=== PATIENT | female | born 1980 | race Caucasian/White ===

== ENCOUNTER 2016-10-28 16:35 | Emergency (ER) | payer OTHER ==
--- NOTE | 2016-10-28 17:13 | ED ---
Female Urogenital HPI - General Chief complaint: Urogenital Stated complaint: Poss UTI/STD check Time Seen by Provider: 10/28/16 16:50 Source: patient, RN notes reviewed Mode of arrival: ambulatory Limitations: no limitations - History of Present Illness Initial comments: Patient is a 36-year-old female presents emergency room for evaluation of pain burning during urination. Patient states she's been having symptoms for the past 3 days. Patient states she recently began having sexual intercourse with a new partner. Patient denies any known STDs from her new partner. Patient states she does have a history of chlamydia when she is 21 years old. Patient does state that she recurrently gets bacterial vaginosis as well. Patient states she thinks she has a urinary tract infection because she does not properly clean herself after sexual intercourse. Patient states she has been taking [id number]-[id number] remedies with no relief of symptoms. Patient denies flank pain or abdominal pain, nausea or vomiting. Patient denies any abnormal vaginal discharge or vaginal discomfort. Patient denies pain during sexual intercourse. Patient denies any abnormal lesions. Patient states that she does want an STD check while she is here. Patient denies any other symptoms or complaints at this time. Last Menstrual Period: 09/28/16 - Related Data Home Medications Medication Instructions Recorded Confirmed ALPRAZolam [Xanax] 0.5 mg PO HS PRN 10/28/16 10/28/16 Methenamine/Sodium Salicylate 1 tab PO Q8H PRN 10/28/16 10/28/16 [Cystex Tablet] Previous Rx's Medication Instructions Recorded Nitrofurantoin Monohyd/M-Cryst 100 mg PO Q12HR 5 Days 10/28/16 [Macrobid] Phenazopyridine HCl [Pyridium] 200 mg PO TID PRN #5 tablet 10/28/16 Allergies Allergy/AdvReac Type Severity Reaction Status Date / Time latex Allergy Unknown Verified 10/28/16 16:57 morphine Allergy Rash/Hives Verified 10/28/16 16:57 promethazine HCl Allergy Nausea & Verified 10/28/16 16:57 [From Phenergan] Vomiting Review of Systems ROS Statement: Those systems with pertinent positive or pertinent negative responses have been documented in the HPI. ROS Other: All systems not noted in ROS Statement are negative. Past Medical History Additional Past Medical History / Comment(s): ovarian cysts anxiety History of Any Multi-Drug Resistant Organisms: None Reported Past Surgical History: Cholecystectomy Past Psychological History: Anxiety Smoking Status: Current every day smoker Past Alcohol Use History: None Reported Past Drug Use History: None Reported General Exam - General Exam Comments Initial Comments: Sitting in exam room in no acute distress. Limitations: no limitations General appearance: alert, in no apparent distress Head exam: Present: atraumatic, normocephalic, normal inspection Eye exam: Present: normal appearance ENT exam: Present: normal exam Neck exam: Present: normal inspection Respiratory exam: Present: normal lung sounds bilaterally. Absent: respiratory distress Cardiovascular Exam: Present: regular rate, normal rhythm, normal heart sounds GI/Abdominal exam: Present: soft, normal bowel sounds. Absent: distended, tenderness, guarding, rebound, rigid External exam: Present: normal external exam Speculum exam: Present: vaginal discharge By manual exam: Present: normal by manual exam Extremities exam: Present: normal inspection Back exam: Present: normal inspection Neurological exam: Present: alert, oriented X3, CN II-XII intact, normal gait Psychiatric exam: Present: normal affect, normal mood Skin exam: Present: warm, dry, intact, normal color. Absent: rash Course Vital Signs 10/28/16 10/28/16 16:44 18:20 Temperature 98.5 F 98.4 F Pulse Rate 67 60 Respiratory 20 18 Rate Blood Pressure 121/62 117/79 O2 Sat by Pulse 97 99 Oximetry Medical Decision Making - Medical Decision Making Patient is a 36-year-old female presents to the emergency room for evaluation of dysuria. Urinalysis suspicious for urinary tract infection. Pelvic exam cultures pending. Patient placed on antibiotics and Pyridium. Advised patient to follow-up with primary care provider or [employer]. Patient states she understands everything that was discussed with her. Return parameters discussed. Case discussed with Dr. Bender. - Lab Data Lab Results 10/28/16 10/28/16 Range/Units 17:08 17:08 Urine Color Yellow Urine Appearance Clear (Clear) Urine pH 5.5 (5.0-8.0) Ur Specific [place] 1.024 (1.001-1.035) Urine Protein Trace H (Negative) Urine Glucose (UA) Negative (Negative) Urine Ketones Negative (Negative) Urine Blood Negative (Negative) Urine Nitrate Negative (Negative) Urine Bilirubin Negative (Negative) Urine Urobilinogen <2.0 (<2.0) mg/dL Ur Leukocyte Esterase Moderate H (Negative) Urine RBC 2 (0-5) /hpf Urine WBC 34 H (0-5) /hpf Ur Squamous Epith Cells 6 H (0-4) /hpf Urine Bacteria Rare H (None) /hpf Urine Mucus Occasional H (None) /hpf Trichomonas Ag (Rapid) Negative (Negative) Disposition Clinical Impression: Urinary tract infection Disposition: HOME SELF-CARE Condition: Good Instructions: Urinary Tract Infection in Women (ED) Additional Instructions: Take medications as needed. Drink plenty of water. Please follow up with primary care provider in 1-2 days. If any new symptom arises, symptoms worsen or fever develops, return to ER as soon as possible. Prescriptions: Nitrofurantoin Monohyd/M-Cryst [Macrobid] 100 mg PO Q12HR 5 Days Phenazopyridine HCl [Pyridium] 200 mg PO TID PRN #5 tablet PRN Reason: Pain Referrals: None,Stated [Primary Care Provider] - 1-2 days Time of Disposition: 18:03
[2016-10-28 17:58] LABS: Appearance,Urine Clear (Clear); Bacteria,Urine Rare /hpf; Bilirubin,Urine Negative (Negative); Glucose,Urine (UA) Negative (Negative); Ketones,Urine Negative (Negative); Leukocyte Esterase,Urine Moderate (Negative); Mucus,Urine Occasional /hpf; Nitrite,Urine Negative (Negative); PH, Urine 5.5 (5.0-8.0); Particle Count 6267; Protein,Urine Trace (Negative); RBC,Urine 2 /hpf (0-5); Specific Gravity,Urine 1.024 (1.001-1.035); Squamous Epithelial Cell,Urine 6 /hpf (0-4); UA Billing (MACRO vs. MICRO) MICRO; Urobilinogen,Urine <2.0 mg/dL (<2.0); WBC,Urine 34 /hpf (0-5)
[2016-10-28] MEDS ORDERED: PHENAZOPYRIDINE 200 MG TAB PO STA (18:01)
[2016-10-28] MEDS ORDERED: NITROFURANTOIN MONOHYD/M-CRYST 100 MG CAP PO STA (18:02)
[2016-10-28 18:21] VITALS: BP 117/79; PULSE 60; RESP 18; TEMP 98.4
== END 2016-10-28 18:21 | disposition home or self-care (01) ==
LOC: EC 16:35
DX: N39.0 Urinary tract infection, site not specified (principal); F17.200 Nicotine dependence, unspecified, uncomplicated; Z91.040 Latex allergy status; Z88.5 Allergy status to narcotic agent; Z88.8 Allergy status to other drugs, medicaments and biological substances
CPT/HCPCS: 81001; 87070; 87077; 87086; 87186; 87205; 87491; 87591; 87808; 99283

== ENCOUNTER 2018-11-11 17:42 | Emergency (ER) | payer OTHER ==
[2018-11-11 18:42] VITALS: BP 121/70; PULSE 77; RESP 16; TEMP 98.9
[2018-11-11 19:03] LABS: Appearance,Urine Clear (Clear); Bacteria,Urine Occasional /hpf; Bilirubin,Urine Negative (Negative); Blood,Urine Negative (Negative); Color,Urine Dark Yellow; Glucose,Urine (UA) Negative (Negative); Ketones,Urine Negative (Negative); Leukocyte Esterase,Urine Trace (Negative); Mucus,Urine Rare /hpf; Nitrite,Urine Negative (Negative); Protein,Urine Trace (Negative); RBC,Urine 2 /hpf (0-5); Specific Gravity,Urine 1.021 (1.001-1.035); Squamous Epithelial Cell,Urine 5 /hpf (0-4)
--- NOTE | 2018-11-11 19:21 | ED ---
General Adult HPI - General Chief complaint: Urogenital Stated complaint: UTI Time Seen by Provider: 11/11/18 18:18 Source: patient, RN notes reviewed, old records reviewed Mode of arrival: ambulatory Limitations: no limitations - History of Present Illness Initial comments: 38-year-old female patient upper and past medical history presents ED with 3 days of dysuria, frequency, urgency. Patient feels as if she has a urinary tract infection. Patient denies other complaints today. Denies abdominal pain , fever chills, nausea vomiting diarrhea. Systemic: Pt denies fatigue, myalgia, fever/chills, rash. Pt denies weakness, night sweats, weight loss. Neuro: Pt denies headache, visual disturbances, syncope or pre-syncope. HEENT: Pt denies ocular discharge or irritation, otalgia, rhinorrhea, pharyngitis or notable lymphadenopathy. Cardiopulmonary: Pt denies chest pain, SOB, heart palpitations, dyspnea on exertion. Abdominal/GI: Pt denies abdominal pain, n/v/d. : Denies new onset urinary or bowel incontinence. MSK: Pt denies myalgia, loss of strength or function in extremities. Neuro: Pt denies new onset weakness, paresthesias. - Related Data Previous Rx's Medication Instructions Recorded Cephalexin [Keflex] 500 mg PO Q12HR 10 Days cap 11/11/18 Allergies Allergy/AdvReac Type Severity Reaction Status Date / Time latex Allergy Unknown Verified 11/11/18 19:46 morphine Allergy Rash/Hives Verified 11/11/18 19:46 promethazine HCl Allergy Nausea & Verified 11/11/18 19:46 [From Phenergan] Vomiting Review of Systems ROS Statement: Those systems with pertinent positive or pertinent negative responses have been documented in the HPI. ROS Other: All systems not noted in ROS Statement are negative. Past Medical History Additional Past Medical History / Comment(s): ovarian cysts anxiety History of Any Multi-Drug Resistant Organisms: None Reported Past Surgical History: Cholecystectomy Past Psychological History: Anxiety Smoking Status: Current every day smoker Past Alcohol Use History: None Reported Past Drug Use History: None Reported General Exam - General Exam Comments Initial Comments: Constitutional: NAD, AOX3, Pt has pleasant affect. HEENT: NC/AT, trachea midline, neck supple, no lymphadenopathy. Posterior pharynx non erythematous, without exudates. External ears appear normal, without discharge. Mucous membranes moist. Eyes PERRLA, EOM intact. There is no scleral icterus. No pallor noted. Cardiopulmonary: RRR, no murmurs, rubs or gallops, no JVD noted. Lungs CTAB in anterior and posterior villanueva. No peripheral edema. Abdominal exam: Abdomen soft and non-distended. Abdomen non-tender to palpation in all 4 quadrants. Bowel sounds active in LLQ. No hepatosplenomegaly. No ecchymosis. CVA tenderness negative. Neuro: CN II-XII grossly intact. No nuchal rigidity. MSK: No posterior calf tenderness bilaterally, homans sign negative bilaterally. Posterior tibialis and radial pulse +2 bilaterally. Sensation intact in upper and lower extremities. Full active ROM in upper and lower extremities, 5/5 stregnth. Limitations: no limitations Course Vital Signs 11/11/18 18:40 Temperature 98.9 F Pulse Rate 77 Respiratory 16 Rate Blood Pressure 121/70 O2 Sat by Pulse 99 Oximetry Medical Decision Making - Medical Decision Making 38-year-old female patient upper and past medical history presents ED with 3 days of dysuria, frequency, urgency. Patient feels as if she has a urinary tract infection. Patient denies other complaints today. Denies abdominal pain , fever chills, nausea vomiting diarrhea. Pt VSS, afebrile. Physical exam did not display acute pathology. UA displayed urinary tract infection, negative hCG. Patient treated for urinary tract infection with Keflex. Patient to follow with primary care provider 1-2 days. Patient to return to ED if new signs symptoms felt or condition worsens in anyway. Case discussed with Dr. Benjamin. - Lab Data Lab Results 11/11/18 11/11/18 Range/Units 18:52 18:52 Urine Color Dark Yellow Urine Appearance Clear (Clear) Urine pH 7.0 (5.0-8.0) Ur Specific [place] 1.021 (1.001-1.035) Urine Protein Trace H (Negative) Urine Glucose (UA) Negative (Negative) Urine Ketones Negative (Negative) Urine Blood Negative (Negative) Urine Nitrite Negative (Negative) Urine Bilirubin Negative (Negative) Urine Urobilinogen 4.0 (<2.0) mg/dL Ur Leukocyte Esterase Trace H (Negative) Urine RBC 2 (0-5) /hpf Urine WBC 14 H (0-5) /hpf Ur Squamous Epith Cells 5 H (0-4) /hpf Urine Bacteria Occasional H (None) /hpf Urine Mucus Rare H (None) /hpf Urine HCG, Qual Not Detected (Not Detectd) Disposition Clinical Impression: UTI (urinary tract infection) Disposition: HOME SELF-CARE Condition: Stable Instructions (If sedation given, give patient instructions): Urinary Tract Infection in Women (ED) Additional Instructions: Patient to adhere to previously discussed treatment plan and will take medication(s) as directed. Patient to follow up with PCP in 1-2 days. Patient to return to ED if symptoms do not improve. Prescriptions: Cephalexin [Keflex] 500 mg PO Q12HR 10 Days cap Is patient prescribed a controlled substance at d/c from ED?: No Referrals: None,Stated [Primary Care Provider] - 1-2 days [facility] Collette pollard [NON-STAFF] - 1-2 days
== END 2018-11-11 19:53 | disposition home or self-care (01) ==
LOC: EC 17:42
DX: N39.0 Urinary tract infection, site not specified (principal); F17.200 Nicotine dependence, unspecified, uncomplicated; Z91.040 Latex allergy status; Z88.5 Allergy status to narcotic agent; Z88.8 Allergy status to other drugs, medicaments and biological substances; Z90.49 Acquired absence of other specified parts of digestive tract
CPT/HCPCS: 81001; 81025; 87086; 99284

== ENCOUNTER 2019-10-19 00:26 | Emergency (ER) | payer OTHER ==
[2019-10-19] MEDS ORDERED: guaiFENesin-DM 600/30MG 1 EACH TAB.ER.12H PO STA (00:52)
[2019-10-19] MEDS ORDERED: SODIUM CHLORIDE 0.9% 1,000 ML IV ONE (00:52)
[2019-10-19] MEDS ORDERED: KETOROLAC 30 MG/ML 1 ML VIAL IVP STA (00:52)
[2019-10-19] MEDS ORDERED: DEXAMETHASONE SOD PHOSPHATE 10 MG/ML 1 ML VIAL IV STA (00:52)
[2019-10-19] MEDS ORDERED: ONDANSETRON 4 MG/2 ML VIAL IVP STA (00:53)
[2019-10-19 01:27] LABS: Appearance,Urine Cloudy (Clear); Bacteria,Urine Rare /hpf; Bilirubin,Urine Negative (Negative); Blood,Urine Negative (Negative); Color,Urine Yellow; Glucose,Urine (UA) Negative (Negative); Hyaline Casts,Urine 2 /lpf (0-2); Ketones,Urine 4+ (Negative); Leukocyte Esterase,Urine Negative (Negative); Mucus,Urine Many /hpf; Nitrite,Urine Negative (Negative); PH, Urine 5.5 (5.0-8.0); Protein,Urine 1+ (Negative); RBC,Urine 3 /hpf (0-5); Specific Gravity,Urine 1.034 (1.001-1.035); Squamous Epithelial Cell,Urine 22 /hpf (0-4); WBC,Urine 4 /hpf (0-5)
[2019-10-19 01:33] LABS: HCT 40.2 % (34.0-46.0); HGB 13.1 gm/dL (11.4-16.0); MCH 29.1 pg (25.0-35.0); MCHC 32.5 g/dL (31.0-37.0); MCV 89.4 fL (80.0-100.0); Mean Platelet Volume 7.5; Platelet Count 235 k/uL (150-450); RBC 4.49 m/uL (3.80-5.40); RDW 12.2 % (11.5-15.5); WBC 6.2 k/uL (3.8-10.6)
[2019-10-19 01:38] LABS: ALT 16 U/L (4-34); AST 32 U/L (14-36); African American GFR (CKD) >90 (>60 ml/min/1.73 sqM); Albumin 4.7 g/dL (3.5-5.0); Alkaline Phosphatase 56 U/L (38-126); Anion Gap 9 mmol/L; Blood Urea Nitrogen 15 mg/dL (7-17); Calcium 9.1 mg/dL (8.4-10.2); Carbon Dioxide 24 mmol/L (22-30); Chloride 103 mmol/L (98-107); Glucose 109 mg/dL (74-99); Non-African American GFR(CKD) >90 (>60 ml/min/1.73 sqM); Potassium 3.6 mmol/L (3.5-5.1); Sodium 136 mmol/L (137-145); Total Bilirubin 0.4 mg/dL (0.2-1.3); Total Protein 7.7 g/dL (6.3-8.2)
--- NOTE | 2019-10-19 01:39 | XR ---
EXAMINATION TYPE: XR chest 2V DATE OF EXAM: 10/19/2019 COMPARISON: NONE HISTORY: Cough TECHNIQUE: FINDINGS: Heart and mediastinum are normal. Lungs are clear. Diaphragm is normal. Bony thorax appears normal. IMPRESSION: Normal chest. Normal heart.
[2019-10-19 01:55] LABS: Eosinophils # (M) 0.06 k/uL (0-0.7); Lymphocytes # (M) 1.74 k/uL (1.0-4.8); Monocytes # (M) 0.81 k/uL (0-1.0); Neutrophils % (M) 58 %; Nucleated Red Blood Cells 0 /100 WBC (0-0); Total Cells Counted 100
[2019-10-19] MEDS ORDERED: OSELTAMIVIR 75 MG CAP PO STA (02:05)
[2019-10-19] MEDS ORDERED: ONDANSETRON 4 MG ODT STARTER PACK 2 TAB BTL PO STA (02:05)
--- NOTE | 2019-10-19 02:05 | ED ---
General Adult HPI - General Chief complaint: Headache Stated complaint: Headache, Vomiting Time Seen by Provider: 10/19/19 00:36 Source: patient, family Mode of arrival: ambulatory Limitations: no limitations - History of Present Illness Initial comments: 39-year-old female patient presents to the emergency department today for evaluation of bodyaches, congestion, cough, and abdominal cramping. Patient states symptoms have been present for the last 4 days. Patient states she saw her primary care physician yesterday, she states they did not do anything for her. Patient denies taking any medication for her symptoms. Patient states that she has severe coughing episodes that cause her to become short of breath. She denies any sputum production. States she is having dry heaves. She denies any chest pain with this. Denies any rash or itching. Patient states that she has been having chills but she is unsure fever. Patient is reporting some abdominal cramping. States she did have diarrhea. She denies any abnormal vaginal bleeding or discharge. Denies hematuria, dysuria, urinary frequency, urinary urgency. Denies chance of . Patient denies any recent rash, diarrhea, constipation, back pain, numbness, tingling, dizziness, weakness, visual changes, or any other complaints. - Related Data Previous Rx's Medication Instructions Recorded Cephalexin [Keflex] 500 mg PO Q12HR 10 Days cap 11/11/18 Ibuprofen [Motrin] 600 mg PO Q8HR PRN #30 tab 10/19/19 Oseltamivir [Tamiflu] 75 mg PO Q12HR #10 cap 10/19/19 guaiFENesin-DM 600/30MG [Mucinex 2 each PO Q12HR PRN #20 tab.er.12h 10/19/19 Dm] Allergies Allergy/AdvReac Type Severity Reaction Status Date / Time latex Allergy Unknown Verified 10/19/19 00:34 morphine Allergy Rash/Hives Verified 10/19/19 00:34 promethazine HCl Allergy Nausea & Verified 10/19/19 00:34 [From Phenergan] Vomiting Review of Systems ROS Statement: Those systems with pertinent positive or pertinent negative responses have been documented in the HPI. ROS Other: All systems not noted in ROS Statement are negative. Past Medical History Additional Past Medical History / Comment(s): ovarian cysts anxiety History of Any Multi-Drug Resistant Organisms: None Reported Past Surgical History: Cholecystectomy Past Psychological History: Anxiety, Depression Smoking Status: Current every day smoker Past Alcohol Use History: None Reported Past Drug Use History: Marijuana General Exam Limitations: no limitations General appearance: alert, in no apparent distress, other (This is a well- developed, well-nourished adult female patient in no acute distress. Vital signs upon presentation are temperature 98.7F, pulse 98, respirations 22, blood pressure 133/88, pulse ox 97% on room air.) Eye exam: Present: normal appearance, PERRL, EOMI. Absent: scleral icterus, conjunctival injection, periorbital swelling ENT exam: Present: mucous membranes moist, TM's normal bilaterally. Absent: normal oropharynx (Pharyngeal erythema) Respiratory exam: Present: normal lung sounds bilaterally. Absent: respiratory distress, wheezes, rales, rhonchi, stridor Cardiovascular Exam: Present: regular rate, normal rhythm, normal heart sounds. Absent: systolic murmur, diastolic murmur, rubs, gallop, clicks GI/Abdominal exam: Present: soft, tenderness (Generalized, mild tenderness), normal bowel sounds. Absent: distended, guarding, rebound, rigid Neurological exam: Present: alert, oriented X3, CN II-XII intact Psychiatric exam: Present: normal affect, normal mood Skin exam: Present: warm, dry, intact, normal color. Absent: rash Course Vital Signs 10/19/19 10/19/19 00:30 02:37 Temperature 98.7 F 98.3 F Pulse Rate 98 73 Respiratory 22 20 Rate Blood Pressure 133/88 116/68 O2 Sat by Pulse 97 98 Oximetry Medical Decision Making - Medical Decision Making 39-year-old female patient presents to the emergency department today for evaluation of upper respiratory symptoms, body aches, abdominal pain. Physical examination revealed mild generalized abdominal tenderness. Chest x-ray shows no acute cardio pulmonary process. Urinalysis is negative for infection or preg tony. Patient was positive for influenza B. I did discuss findings and results with the patient. We will treat patient symptomatically. She is out of the treatment window for Tamiflu. She'll be discharged home to follow-up with her primary care physician for recheck in 1-2 days. Return parameters were discussed in detail. She verbalizes understanding and agrees with this plan. - Lab Data Result diagrams: 10/19/19 01:17 10/19/19 01:17 Lab Results 10/19/19 10/19/19 10/19/19 Range/Units 01:06 01:06 01:17 WBC 6.2 (3.8-10.6) k/uL RBC 4.49 (3.80-5.40) m/uL Hgb 13.1 (11.4-16.0) gm/dL Hct 40.2 (34.0-46.0) % MCV 89.4 (80.0-100.0) fL MCH 29.1 (25.0-35.0) pg MCHC 32.5 (31.0-37.0) g/dL RDW 12.2 (11.5-15.5) % Plt Count 235 (150-450) k/uL Neutrophils % (Manual) 58 % Lymphocytes % (Manual) 28 % Monocytes % (Manual) 13 % Eosinophils % (Manual) 1 % Neutrophils # (Manual) 3.60 (1.3-7.7) k/uL Lymphocytes # (Manual) 1.74 (1.0-4.8) k/uL Monocytes # (Manual) 0.81 (0-1.0) k/uL Eosinophils # (Manual) 0.06 (0-0.7) k/uL Nucleated RBCs 0 (0-0) /100 WBC RBC Morphology Normal Sodium (137-145) mmol/L Potassium (3.5-5.1) mmol/L Chloride (98-107) mmol/L Carbon Dioxide (22-30) mmol/L Anion Gap mmol/L BUN (7-17) mg/dL Creatinine (0.52-1.04) mg/dL Est GFR (CKD-EPI)AfAm (>60 ml/min/1.73 sqM) Est GFR (CKD-EPI)NonAf (>60 ml/min/1.73 sqM) Glucose (74-99) mg/dL Calcium (8.4-10.2) mg/dL Total Bilirubin (0.2-1.3) mg/dL AST (14-36) U/L ALT (4-34) U/L Alkaline Phosphatase (38-126) U/L Total Protein (6.3-8.2) g/dL Albumin (3.5-5.0) g/dL Lipase (23-300) U/L Urine Color Yellow Urine Appearance Cloudy H (Clear) Urine pH 5.5 (5.0-8.0) Ur Specific [place] 1.034 (1.001-1.035) Urine Protein 1+ H (Negative) Urine Glucose (UA) Negative (Negative) Urine Ketones 4+ H (Negative) Urine Blood Negative (Negative) Urine Nitrite Negative (Negative) Urine Bilirubin Negative (Negative) Urine Urobilinogen 3.0 (<2.0) mg/dL Ur Leukocyte Esterase Negative (Negative) Urine RBC 3 (0-5) /hpf Urine WBC 4 (0-5) /hpf Ur Squamous Epith Cells 22 H (0-4) /hpf Urine Bacteria Rare H (None) /hpf Hyaline Casts 2 (0-2) /lpf Urine Mucus Many H (None) /hpf Urine HCG, Qual Not Detected (Not Detectd) Influenza Type A RNA (Not Detectd) Influenza Type B (PCR) (Not Detectd) 10/19/19 10/19/19 Range/Units 01:17 01:17 WBC (3.8-10.6) k/uL RBC (3.80-5.40) m/uL Hgb (11.4-16.0) gm/dL Hct (34.0-46.0) % MCV (80.0-100.0) fL MCH (25.0-35.0) pg MCHC (31.0-37.0) g/dL RDW (11.5-15.5) % Plt Count (150-450) k/uL Neutrophils % (Manual) % Lymphocytes % (Manual) % Monocytes % (Manual) % Eosinophils % (Manual) % Neutrophils # (Manual) (1.3-7.7) k/uL Lymphocytes # (Manual) (1.0-4.8) k/uL Monocytes # (Manual) (0-1.0) k/uL Eosinophils # (Manual) (0-0.7) k/uL Nucleated RBCs (0-0) /100 WBC RBC Morphology Sodium 136 L (137-145) mmol/L Potassium 3.6 (3.5-5.1) mmol/L Chloride 103 (98-107) mmol/L Carbon Dioxide 24 (22-30) mmol/L Anion Gap 9 mmol/L BUN 15 (7-17) mg/dL Creatinine 0.60 (0.52-1.04) mg/dL Est GFR (CKD-EPI)AfAm >90 (>60 ml/min/1.73 sqM) Est GFR (CKD-EPI)NonAf >90 (>60 ml/min/1.73 sqM) Glucose 109 H (74-99) mg/dL Calcium 9.1 (8.4-10.2) mg/dL Total Bilirubin 0.4 (0.2-1.3) mg/dL AST 32 (14-36) U/L ALT 16 (4-34) U/L Alkaline Phosphatase 56 (38-126) U/L Total Protein 7.7 (6.3-8.2) g/dL Albumin 4.7 (3.5-5.0) g/dL Lipase 50 (23-300) U/L Urine Color Urine Appearance (Clear) Urine pH (5.0-8.0) Ur Specific [place] (1.001-1.035) Urine Protein (Negative) Urine Glucose (UA) (Negative) Urine Ketones (Negative) Urine Blood (Negative) Urine Nitrite (Negative) Urine Bilirubin (Negative) Urine Urobilinogen (<2.0) mg/dL Ur Leukocyte Esterase (Negative) Urine RBC (0-5) /hpf Urine WBC (0-5) /hpf Ur Squamous Epith Cells (0-4) /hpf Urine Bacteria (None) /hpf Hyaline Casts (0-2) /lpf Urine Mucus (None) /hpf Urine HCG, Qual (Not Detectd) Influenza Type A RNA Not Detected (Not Detectd) Influenza Type B (PCR) Detected H (Not Detectd) - Radiology Data Radiology results: report reviewed, image reviewed Two-view x-ray of the chest is obtained. Report was reviewed in its entirety. Impression by Dr. Glaser shows normal chest. Normal heart Disposition Clinical Impression: Influenza B Disposition: HOME SELF-CARE Condition: Good Instructions (If sedation given, give patient instructions): Influenza (ED) Additional Instructions: Increase fluids. Take medications as instructed. Follow-up through primary care physician for recheck in 1-2 days. Return to the emergency department immediately for any new, worsening, or concerning symptoms. Meds given in the ED: Mucinex DM Decadron (steroid) Toradol (Anti-inflammatory pain medication) Normal Saline (IV fluids) Tamiflu (Treatment for influenza) Zofran (Treatment for nausea) Dilaudid (For Pain) Prescriptions: Ibuprofen [Motrin] 600 mg PO Q8HR PRN #30 tab PRN Reason: Pain guaiFENesin-DM 600/30MG [Mucinex Dm] 2 each PO Q12HR PRN #20 tab.er.12h PRN Reason: Cough Oseltamivir [Tamiflu] 75 mg PO Q12HR #10 cap Is patient prescribed a controlled substance at d/c from ED?: No Referrals: None,Stated [Primary Care Provider] - 1-2 days Time of Disposition: 02:05
[2019-10-19] MEDS ORDERED: HYDROmorphone 0.5 MG/0.5 ML SYRINGE IVP STA (02:12)
[2019-10-19] MEDS ORDERED: IBUPROFEN 600 MG STARTER PACK 4 TAB BTL PO STA (02:12)
[2019-10-19 02:38] VITALS: BP 116/68; PULSE 73; RESP 20; TEMP 98.3
== END 2019-10-19 02:38 | disposition home or self-care (01) ==
LOC: EC 00:26
DX: J10.1 Influenza due to other identified influenza virus with other respiratory manifestations (principal); R10.9 Unspecified abdominal pain; R19.7 Diarrhea, unspecified; F17.200 Nicotine dependence, unspecified, uncomplicated; Z88.5 Allergy status to narcotic agent; Z88.8 Allergy status to other drugs, medicaments and biological substances; Z91.040 Latex allergy status; Z90.49 Acquired absence of other specified parts of digestive tract
CPT/HCPCS: 36415; 80053; 83690; 85025; 81001; 81025; 87502; 71046; 99284; 96374; 96375 ×3; 96361; J1100; J2405; J1885; S0119; J1170

== ENCOUNTER 2019-10-30 23:03 | Emergency (ER) | payer OTHER ==
[2019-10-30 23:23] VITALS: BP 153/71; PULSE 76; RESP 20; TEMP 98.2
[2019-10-30] MEDS ORDERED: ETODOLAC 400 MG TAB PO STA (23:42)
[2019-10-30] MEDS ORDERED: AMOXICILLIN 500 MG CAP PO STA (23:43)
--- NOTE | 2019-10-30 23:47 | ED ---
ENT HPI - General Chief complaint: ENT Stated complaint: Lt Ear Pain Time Seen by Provider: 10/30/19 23:28 Source: patient Mode of arrival: ambulatory Limitations: no limitations - History of Present Illness Initial comments: Patient is a 39-year-old female presenting with left-sided ear pain that increased today. Patient states she was recently diagnosed with influenza 2 weeks ago and has been recovering well from that. Patient states last night and into today she started developing 10/10 left ear pain extending into her jaw. Patient denies any fevers, chills, nausea, vomiting. She denies any chest pain, short of breath, cough. She has no other complaints at this time. Upon arrival to the ER her vital signs are stable. - Related Data Previous Rx's Medication Instructions Recorded Cephalexin [Keflex] 500 mg PO Q12HR 10 Days cap 11/11/18 Ibuprofen [Motrin] 600 mg PO Q8HR PRN #30 tab 10/19/19 Ondansetron Odt [Zofran Odt] 4 mg PO Q8HR PRN #10 tab 10/19/19 Oseltamivir [Tamiflu] 75 mg PO Q12HR #10 cap 10/19/19 guaiFENesin-DM 600/30MG [Mucinex 2 each PO Q12HR PRN #20 tab.er.12h 10/19/19 Dm] Amoxicillin 500 mg PO BID 7 Days #14 capsule 10/30/19 Ibuprofen [Motrin] 600 mg PO Q8HR PRN #30 tab 10/30/19 Allergies Allergy/AdvReac Type Severity Reaction Status Date / Time latex Allergy Unknown Verified 10/30/19 23:24 morphine Allergy Rash/Hives Verified 10/30/19 23:24 promethazine HCl Allergy Nausea & Verified 10/30/19 23:24 [From Phenergan] Vomiting Review of Systems ROS Statement: Those systems with pertinent positive or pertinent negative responses have been documented in the HPI. ROS Other: All systems not noted in ROS Statement are negative. Past Medical History Additional Past Medical History / Comment(s): ovarian cysts anxiety History of Any Multi-Drug Resistant Organisms: None Reported Past Surgical History: Adenoidectomy, Cholecystectomy, Tonsillectomy Additional Past Surgical History / Comment(s): lt fallopian tube removal Past Psychological History: Anxiety, Depression Smoking Status: Current every day smoker Past Alcohol Use History: None Reported Past Drug Use History: Marijuana General Exam - General Exam Comments Initial Comments: GENERAL: Well-appearing, well-nourished and in no acute distress. HEAD: Atraumatic, normocephalic. EYES: Pupils equal round and reactive to light, extraocular movements intact, sclera anicteric, conjunctiva are normal. ENT: Right TM is normal, left TM is very erythematous and bulging. Bilateral EACs are normal. Nares patent, oropharynx clear without exudates. Moist mucous membranes. NECK: Normal range of motion, supple without lymphadenopathy or JVD. . LUNGS: Breath sounds clear to auscultation bilaterally and equal. No wheezes rales or rhonchi. HEART: Regular rate and rhythm without murmurs, rubs or gallops. ABDOMEN: Soft, nontender, normoactive bowel sounds. No guarding, no rebound. No masses appreciated. EXTREMITIES: Normal range of motion, no pitting or edema. No clubbing or cyanosis. NEUROLOGICAL: Normal speech, normal gait. PSYCH: Normal mood, normal affect. SKIN: Warm, Dry, normal turgor, no rashes or lesions noted. Limitations: no limitations Course Vital Signs 10/30/19 23:20 Temperature 98.2 F Pulse Rate 76 Respiratory 20 Rate Blood Pressure 153/71 O2 Sat by Pulse 99 Oximetry Medical Decision Making - Medical Decision Making Patient is a 39-year-old female presenting with left ear pain 1 day. She was recently diagnosed with influenza 2 weeks ago, recovering well from that. On exam patient has otitis media of the left ear. No other acute findings. Patient will be started on amoxicillin and given first dose in the ER as well as an anti-inflammatory. Patient is stable for discharge. She is in agreement with this plan of care. Return parameters were discussed with the patient she verbalized understanding. Disposition Clinical Impression: Left otitis media Disposition: HOME SELF-CARE Condition: Stable Instructions (If sedation given, give patient instructions): Ear Infection (ED) Additional Instructions: Please return to the Emergency Department if symptoms worsen or any other concerns. Take antibiotic as prescribed. May take Motrin or Aleve for pain. Prescriptions: Amoxicillin 500 mg PO BID 7 Days #14 capsule Ibuprofen [Motrin] 600 mg PO Q8HR PRN #30 tab PRN Reason: Pain Is patient prescribed a controlled substance at d/c from ED?: No Referrals: None,Stated [Primary Care Provider] - 1-2 days
[2019-10-30] MEDS ORDERED: ONDANSETRON ODT 4 MG TAB PO STA (23:51)
== END 2019-10-31 00:24 | disposition home or self-care (01) ==
LOC: EC 23:03
DX: H66.92 Otitis media, unspecified, left ear (principal); F17.200 Nicotine dependence, unspecified, uncomplicated; Z91.040 Latex allergy status; Z88.5 Allergy status to narcotic agent; Z88.8 Allergy status to other drugs, medicaments and biological substances; Z87.09 Personal history of other diseases of the respiratory system
CPT/HCPCS: 99282

== ENCOUNTER 2019-11-03 18:09 | Emergency (ER) | payer OTHER ==
[2019-11-03 18:15] VITALS: BP 126/92; RESP 18; TEMP 97.8
[2019-11-03] MEDS ORDERED: ONDANSETRON ODT 4 MG TAB PO STA (18:43)
[2019-11-03] MEDS ORDERED: ONDANSETRON 4 MG ODT STARTER PACK 2 TAB BTL PO STA (18:45)
[2019-11-03 18:48] VITALS: PULSE 107
--- NOTE | 2019-11-03 18:48 | ED ---
General Adult HPI - General Chief complaint: ENT Stated complaint: Earache,Hearing loss Time Seen by Provider: 11/03/19 18:22 Source: patient, RN notes reviewed Mode of arrival: ambulatory Limitations: no limitations - History of Present Illness Initial comments: 39-year-old female presents to the emergency department for a chief complaint of decreased hearing from the left ear. Patient states that she was diagnosed with an ear infection 5 days ago. States she has been taking amoxicillin. However now her hearing is decreased. She denies fevers or chills. Denies any drainage from the left ear.Patient has no other complaints at this time including shortness of breath, chest pain, abdominal pain, nausea or vomiting, headache, or visual changes. - Related Data Previous Rx's Medication Instructions Recorded Cephalexin [Keflex] 500 mg PO Q12HR 10 Days cap 11/11/18 Ibuprofen [Motrin] 600 mg PO Q8HR PRN #30 tab 10/19/19 Ondansetron Odt [Zofran Odt] 4 mg PO Q8HR PRN #10 tab 10/19/19 Oseltamivir [Tamiflu] 75 mg PO Q12HR #10 cap 10/19/19 guaiFENesin-DM 600/30MG [Mucinex 2 each PO Q12HR PRN #20 tab.er.12h 10/19/19 Dm] Amoxicillin 500 mg PO BID 7 Days #14 capsule 10/30/19 Ibuprofen [Motrin] 600 mg PO Q8HR PRN #30 tab 10/30/19 Amoxicillin/Potassium Clav 1 tab PO Q12HR #20 tab 11/03/19 [Augmentin 875-125 Tablet] Ondansetron [Zofran ODT] 4 mg PO Q8HR PRN #15 tab 11/03/19 Allergies Allergy/AdvReac Type Severity Reaction Status Date / Time latex Allergy Unknown Verified 11/03/19 18:12 morphine Allergy Rash/Hives Verified 11/03/19 18:12 promethazine HCl Allergy Nausea & Verified 11/03/19 18:12 [From Phenergan] Vomiting Review of Systems ROS Statement: Those systems with pertinent positive or pertinent negative responses have been documented in the HPI. ROS Other: All systems not noted in ROS Statement are negative. Past Medical History Additional Past Medical History / Comment(s): ovarian cysts anxiety History of Any Multi-Drug Resistant Organisms: None Reported Past Surgical History: Adenoidectomy, Cholecystectomy, Tonsillectomy Additional Past Surgical History / Comment(s): lt fallopian tube removal Past Psychological History: Anxiety, Depression Smoking Status: Current every day smoker Past Alcohol Use History: None Reported Past Drug Use History: Marijuana General Exam Limitations: no limitations General appearance: alert, in no apparent distress Head exam: Present: atraumatic, normocephalic, normal inspection Eye exam: Present: normal appearance, PERRL, EOMI. Absent: scleral icterus, conjunctival injection, periorbital swelling ENT exam: Present: normal exam, normal oropharynx, mucous membranes moist, normal external ear exam (No evidence for otitis externa. No edema of the ear canal.). Absent: TM's normal bilaterally (Left tympanic membrane is ruptured.) Neck exam: Present: normal inspection, full ROM. Absent: tenderness, meningismus, lymphadenopathy Respiratory exam: Present: normal lung sounds bilaterally. Absent: respiratory distress, wheezes, rales, rhonchi, stridor Cardiovascular Exam: Present: regular rate, normal rhythm, normal heart sounds. Absent: systolic murmur, diastolic murmur, rubs, gallop, clicks Course Vital Signs 11/03/19 11/03/19 18:13 18:48 Temperature 97.8 F Pulse Rate 128 H 107 H Respiratory 18 18 Rate Blood Pressure 126/92 O2 Sat by Pulse 96 Oximetry Medical Decision Making - Medical Decision Making Physical exam reveals a rupture of the left tympanic membrane. There is no drainage. No history days. No evidence of otitis externa. Patient will be switched from amoxicillin to Augmentin. She does have some nausea so was given Zofran. I discussed keeping water out of the ear discussed importance of following up with ENT for this. She was given the phone number. I discussed this case with Dr. Mckinley who is in agreement with treatment plan. She will return with any worsening symptoms. Disposition Clinical Impression: Tympanic membrane rupture Disposition: HOME SELF-CARE Condition: Good Instructions (If sedation given, give patient instructions): Ruptured Eardrum (ED) Additional Instructions: Please take antibiotic as directed. Keep water out of the ear. Follow-up with ENT in 1-2 days. If you have any worsening symptoms return to the emergency department. Prescriptions: Amoxicillin/Potassium Clav [Augmentin 875-125 Tablet] 1 tab PO Q12HR #20 tab Ondansetron [Zofran ODT] 4 mg PO Q8HR PRN #15 tab PRN Reason: Nausea Is patient prescribed a controlled substance at d/c from ED?: No Referrals: Andrew Mccartney MD [REFERRING] - 1-2 days Jan Hawk DO [Doctor of Osteopathic Medicine] - 1-2 days Time of Disposition: 18:43
== END 2019-11-03 18:58 | disposition home or self-care (01) ==
LOC: EC 18:09
DX: H72.92 Unspecified perforation of tympanic membrane, left ear (principal); F41.9 Anxiety disorder, unspecified; R00.0 Tachycardia, unspecified; F17.200 Nicotine dependence, unspecified, uncomplicated; Z91.040 Latex allergy status; Z88.5 Allergy status to narcotic agent; Z88.8 Allergy status to other drugs, medicaments and biological substances
CPT/HCPCS: 99283; S0119

== ENCOUNTER → 2019-11-26 | Outpatient (CLI) | payer OTHER ==
[2019-11-26 16:15] LABS: Basophils # (A) 0.1 k/uL (0-0.2); Basophils % (A) 1 %; Eosinophils # (A) 0.3 k/uL (0-0.7); Eosinophils % (A) 3 %; HCT 40.2 % (34.0-46.0); HGB 13.2 gm/dL (11.4-16.0); Lymphocytes # (A) 2.6 k/uL (1.0-4.8); Lymphocytes % (A) 34 %; MCH 30.8 pg (25.0-35.0); MCHC 32.8 g/dL (31.0-37.0); MCV 93.9 fL (80.0-100.0); Mean Platelet Volume 7.7; Monocytes # (A) 0.5 k/uL (0-1.0); Monocytes % (A) 6 %; Neutrophils # (A) 4.1 k/uL (1.3-7.7); Neutrophils % (A) 53 %; Platelet Count 260 k/uL (150-450); RBC 4.28 m/uL (3.80-5.40); RDW 12.8 % (11.5-15.5); WBC 7.8 k/uL (3.8-10.6)
[2019-11-26 19:46] LABS: % Iron Saturation 44.37 (12.00-45.00); African American GFR (CKD) 128.3 (60.0-200.0); Albumin 4.9 g/dL (3.80-4.90); Albumin/Globulin Ratio 2.23 (1.60-3.17); Anion Gap 10.2 mmol/L (4.00-12.00); Calcium 9.7 mg/dL (8.7-10.3); Carbon Dioxide 25.8 mmol/L (21.6-31.8); Globulin 2.2 g/dL (1.6-3.3); Non-African American GFR(CKD) 110.7 (60.0-200.0); Potassium 3.8 mmol/L (3.5-5.5); Total Bilirubin 0.2 mg/dL (0.3-1.2); Total Protein 7.1 g/dL (6.2-8.2)
[2019-11-26 19:55] LABS: Ferritin 90.5 ng/mL (10.0-291.0)
[2019-11-26 20:11] LABS: T4, Free (Free Thyroxine) 0.9 ng/dL (0.80-1.80)
== END | disposition home or self-care (01) ==
LOC: LABWHC1 15:14
PROVIDERS: ATTEND Psychiatry & Neurology Psychiatry
DX: Z51.81 Encounter for therapeutic drug level monitoring (principal); Z79.899 Other long term (current) drug therapy
CPT/HCPCS: 36415; 80053; 82728; 83540; 83550; 84439; 84443; 85025

== ENCOUNTER → 2020-09-23 | Outpatient (CLI) | payer OTHER ==
[2020-09-23 10:24] LABS: Basophils # (A) 0.1 k/uL (0-0.2); Basophils % (A) 1 %; Eosinophils # (A) 0.1 k/uL (0-0.7); Eosinophils % (A) 2 %; HCT 38.1 % (34.0-46.0); HGB 12.9 gm/dL (11.4-16.0); Lymphocytes # (A) 2.4 k/uL (1.0-4.8); Lymphocytes % (A) 37 %; MCH 31.2 pg (25.0-35.0); MCHC 33.8 g/dL (31.0-37.0); MCV 92.5 fL (80.0-100.0); Mean Platelet Volume 7.2; Monocytes # (A) 0.4 k/uL (0-1.0); Monocytes % (A) 7 %; Neutrophils # (A) 3.3 k/uL (1.3-7.7); Neutrophils % (A) 52 %; Platelet Count 223 k/uL (150-450); RBC 4.11 m/uL (3.80-5.40); RDW 12.3 % (11.5-15.5); WBC 6.4 k/uL (3.8-10.6)
== END | disposition home or self-care (01) ==
LOC: LABPAT 09:48
PROVIDERS: ATTEND Obstetrics & Gynecology Obstetrics
DX: Z30.2 Encounter for sterilization (principal)
CPT/HCPCS: 85025

== ENCOUNTER 2020-09-29 06:18 | Day surgery (SDC) | payer OTHER ==
[2020-09-22 15:16] VITALS: BMI 22.6
--- NOTE | 2020-09-28 18:59 | HP ---
HISTORY AND PHYSICAL DATE OF SURGERY: 09/29/2020 CHIEF COMPLAINT: Family planning. Desires permanent sterilization. HISTORY OF PRESENT ILLNESS: This is a 40-year-old female, 3, para 1-0-2-1, who presents with complaints of control counseling. The patient desires permanent sterilization, as she is done with childbearing. The patient states her periods are regular, occurring every 28-30 days, lasting 5-6 days. Patient states she denies any dysmenorrhea and is using nothing as her current method of contraception. She has one current partner and her medical history is noncontributory. The patient states she had her last Pap smear in July and it was negative. She denies any recent abnormal Pap smears. 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 PAST MEDICAL HISTORY: 1. Significant for anemia. 2. Anxiety and depression. 3. Hypertension. 4. Insomnia. 5. Restless legs syndrome. PAST SURGICAL HISTORY: Significant for a cyst removal in her left tube in 1999. MEDICATIONS: She is on risperidone and trazodone. ALLERGIES: ALLERGIC to LATEX AND MORPHINE. FAMILY MEDICAL HISTORY: Noncontributory. REPRODUCTIVE HISTORY: As stated above, she is 3, para 1-0-2-1 with one prior vaginal delivery and two prior missed ABs. Patient states her menstrual cycles are regular and denies concerns with them. She denies dysmenorrhea or heavy menstrual bleeding. 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 She is a current everyday tobacco smoker. She does struggle with anxiety and depression. REVIEW OF SYSTEMS: She denies body aches or night sweats. She denies chest pain or syncope. She denies shortness of breath, wheezing or coughing. She denies nausea, vomiting, diarrhea, constipation, or blood in her stool. Genitourinary: She denies urinary urgency, frequency. She denies irregular menstrual cycles, dysmenorrhea or vaginal discharge. PHYSICAL EXAMINATION: She is noted to have stable vital signs with a weight of 125 pounds and a height of 5 feet 1 inch. On physical examination, this is a well-nourished, well-developed, alert female in no acute distress. Breathing effort is noted to be unlabored. Her heart has a regular rate and rhythm. Her abdomen is non-tender and non-distended with normal bowel sounds. She is grossly oriented to person, place and time and has normal judgment and insight noted to be intact. FAMILY PLANNING: She desires permanent sterilization with laparoscopic tubal ligation. An [employer] pamphlet was given to the patient regarding laparoscopic tubal ligation, and she was informed upon the procedure. Risks were reviewed, including but not limited to infection, bleeding, damage to bladder, bowel, ureteric injury. The patient is understanding that there is a failure rate associated with laparoscopic tubal ligation: 2 to 3 per 1000 will fail, and she should seek medical care should she skip a period. She states understanding of all of these risks. PLAN: Laparoscopic tubal ligation with Filshie clips. MMODL / IJN: [id number] /
[~2020-09-29 06:18] MED LIST: DEXAMETHASONE SOD PHOSPHATE 4 MG/ML 1 ML VIAL IV ONE; LACTATED RINGERS 1,000 ML IV SCH; LIDOCAINE 1% (10MG/ML) FOR IV START INTRADERMA PRN; MIDAZOLAM 2 MG/2 ML VIAL IV PRN; ONDANSETRON 4 MG/2 ML VIAL IVP ONE; Pre Op ABX Message 1 EACH MISC MISCELLANE ONE
[2020-09-29] MEDS ORDERED: LACTATED RINGERS 1,000 ML IV ONE (06:45)
[2020-09-29] MEDS ORDERED: HYDROmorphone 0.5 MG/0.5 ML SYRINGE IVP PRN (07:00)
[2020-09-29] MEDS ORDERED: ROCURONIUM 10 MG/ML (10 ML VIAL) IV ONE (07:34)
[2020-09-29] MEDS ORDERED: GLYCOPYRROLATE 0.2 MG/ML 2 ML VIAL ONE (07:34)
[2020-09-29] MEDS ORDERED: KETOROLAC 15 MG/ML 1 ML VIAL ONE (07:34)
[2020-09-29] MEDS ORDERED: NEOSTIGMINE 1 MG/ML 10 ML VIAL ONE (07:34)
[2020-09-29] MEDS ORDERED: LIDOCAINE 1% INJ 10MG/ML (20 ML MDV) ONE (07:34)
[2020-09-29] MEDS ORDERED: HYDROmorphone (PF) 1 MG/ML ONE (07:34)
[2020-09-29] MEDS ORDERED: MIDAZOLAM 2 MG/2 ML VIAL ONE (07:34)
[2020-09-29] MEDS ORDERED: PROPOFOL 10 MG/ML 20 ML VIAL IV ONE (07:34)
[2020-09-29] MEDS ORDERED: fentaNYL (PF) 50 MCG/ML 2 ML AMP ONE (07:34)
[2020-09-29] MEDS ORDERED: BUPIVACAINE (PF) 0.25% 30 ML VIAL SQ ONE ×2 (08:01→08:13)
[2020-09-29 08:30] VITALS: TEMP 98
--- NOTE | 2020-09-29 08:35 | P.OP ---
Date of Procedure: 09/29/20 Preoperative Diagnosis: Undesired fertility, family status complete Postoperative Diagnosis: Same, uterine fibroids Procedure(s) Performed: Laparoscopic tubal ligation with Filshie clips Anesthesia: UMESH Surgeon: Yanni Acevedo Estimated Blood Loss (ml): 5 IV fluids (ml): 600 Urine output (ml): 50 Pathology: none sent Condition: stable Disposition: PACU Indications for Procedure: Undesired fertility, desires permanent sterilization Operative Findings: Pelvic anatomy is distorted with uterine fibroids. Uterine fibroid is noted on the right corneal region and in addition the left mid uterus both are noted to be pedunculated. Description of Procedure: Patient was seen in the preoperative area and informed consent is obtained. Patient was taken back to the operating suite and general anesthesia was obtained without difficulty by the anesthesia department. She is then prepped and draped in the normal sterile fashion in the dorsal lithotomy position. A latex free catheter is then used to drain the bladder of clear yellow urine. A Graves speculum was then placed vaginally. The cervix is visualized and grasped with a single-tooth tenaculum, and acorn uterine manipulator was advanced into the cervix as a means to manipulate the uterus throughout the procedure. Attention then turned the patient's abdomen where in the umbilical fold a small skin incision is made. Through this incision the Veress needles placed. Once the Veress needle is deemed to be in the appropriate position with a drop of CO2 pressure with insufflation of CO2 gas CO2 insufflation was allowed to occur. 3 L of gas was used to obtain pneumoperitoneum. At this time a 5 mm trocar and sleeve with the laparoscope in place is placed through the skin incision and toward the pneumoperitoneum. The above-noted findings are visualized. An additional port site is placed infraumbilically this is an 8 mm port placed under direct visualization. The Filshie clip applicator is opened and a small amount of lidocaine is placed on the clip. The patient's right fallopian tube is grasped and clasped with the clip. This was then repeated on the opposite side. Multiple pictures were taken. At this time all instruments are removed from the patient's abdomen and the skin incisions are closed with 4-0 Vicryl. Steri-Strips and sterile dressings are applied. Lidocaine is instilled into the se incisions. Attention then turned vaginally where the single-tooth tenaculum was taken off of the anterior lip of the cervix with hemostasis being appreciated. The acorn uterine manipulator was removed without difficulty. All counts were noted be correct 2 at the end of the procedure patient did tolerate procedure well and was taken the recovery room awake in stable condition.
[2020-09-29 09:18] VITALS: RESP 16
[2020-09-29] MEDS ORDERED: IBUPROFEN 200 MG TAB PO ONE (09:21)
[2020-09-29 09:40] VITALS: BP 111/70; PULSE 61
--- NOTE | 2020-10-01 12:46 | CDI ---
clips were placed on b/l fallopian tubes, she had a h/o left fallopian tube cyst. thank you Dr. Acevedo Date: 10.01.20 CDS/Sewage Plant Supervisor Name: Barbara Clark Phone: If any questions, call Sulma Hernandez Balloon Artist at [phone] Patient Name: Sadia Chavez Admit Date 09.25.20 Discharge Date: 09.25.20 ATTENTION: The [facility] Coding Staff appreciate your assistance in clarifying documentation. Please respond to the clarification below the line at the bottom and electronically sign. The [facility] Coding staff will review the response and follow-up if needed. Please note: Queries are made part of the Legal Health Record. If you have any questions, please contact the Balloon Artist. Dear Dr. Acevdeo In order to code to the greatest specificity and for the greatest reimbursement I need the following information: In your OP report you document that the Filshie clips were clasped on both fallopian tubes. But on the Anesthesia record under previous surgeries they have documented L Fallopian tube removed. Please clarify whether the Filshie clip was applied to the Left fallopian tube. Thank you for your kind consideration. MTDD
== END 2020-09-29 10:14 | disposition home or self-care (01) ==
LOC: OR 06:18
PROVIDERS: ATTEND Obstetrics & Gynecology Obstetrics
DX: Z30.2 Encounter for sterilization (principal); D25.9 Leiomyoma of uterus, unspecified; F41.9 Anxiety disorder, unspecified; F32.9 Major depressive disorder, single episode, unspecified; I10 Essential (primary) hypertension; G47.00 Insomnia, unspecified; G25.81 Restless legs syndrome; K08.89 Other specified disorders of teeth and supporting structures; F17.200 Nicotine dependence, unspecified, uncomplicated; Z91.040 Latex allergy status; Z88.5 Allergy status to narcotic agent; Z86.2 Personal history of diseases of the blood and blood-forming organs and certain disorders involving the immune mechanism; Z98.890 Other specified postprocedural states; Z87.42 Personal history of other diseases of the female genital tract; Z87.59 Personal history of other complications of pregnancy, childbirth and the puerperium; Z90.89 Acquired absence of other organs; Z90.79 Acquired absence of other genital organ(s)
CPT/HCPCS: 58671; 81025; J2250; J1100; J2710; J2405; J2001; J3010; J1170; J1885; J2704

== ENCOUNTER → 2021-03-05 | Outpatient (CLI) | payer OTHER ==
--- NOTE | 2021-03-05 15:46 | XR ---
EXAMINATION TYPE: XR cervical spine comp DATE OF EXAM: 03/05/2021 TECHNIQUE: Frontal, lateral, oblique, swimmers, and open mouth view of the cervical spine are obtaine d. HISTORY: M54.2 COMPARISON: None FINDINGS: There is reversal of the normal cervical lordosis. Vertebral body heights are preserved. There is mil d anterolisthesis of C4 on 5 measuring 3 mm and mild retrolisthesis of C5 on 6 measuring 2 mm. Multil evel endplate sclerosis and minimal osteophytosis is seen. No enlargement of the prevertebral soft ti ssues. There is no bony encroachment upon the bilateral neural foramina. IMPRESSION: Reversal of the normal cervical lordosis with mild anterolisthesis of C4 on 5 and mild re trolisthesis of C5 on 6 with multilevel disc disease changes.
== END | disposition home or self-care (01) ==
LOC: RADXRMAIN 15:23
PROVIDERS: ATTEND Nurse Practitioner Family
DX: M43.12 Spondylolisthesis, cervical region (principal); M50.30 Other cervical disc degeneration, unspecified cervical region
CPT/HCPCS: 72050

== ENCOUNTER 2021-03-28 | Emergency (ER) | payer OTHER | END 2021-03-28 17:09 | disposition home or self-care (01) ==

== ENCOUNTER → 2021-06-16 | Outpatient (CLI) | payer OTHER ==
--- NOTE | 2021-06-16 12:37 | MR ---
EXAMINATION TYPE: MR cervical spine wo con DATE OF EXAM: 06/16/2021 11:36 AM COMPARISON: NONE HISTORY: Neck pain, carlos manuel shoulder pain Multiplanar MultiSpin echo imaging of the cervical spine was performed. Comparison: none C2-C3: No evidence for degenerative disc disease. No disc bulge/herniation or protrusion. No Canal stenosis. Foramina are patent bilaterally. C3-C4: No evidence for degenerative disc disease. No disc bulge/herniation or protrusion. No Canal stenosis. Foramina are patent bilaterally. C4-C5: No evidence for degenerative disc disease. No disc bulge/herniation or protrusion. No Canal stenosis. Foramina are patent bilaterally. C5-C6: Mild to moderate disc desiccation. Broad-based posterior disc bulge effaces the ventral thecal sac. No evidence for cord contact. No central stenosis. Foramina are patent bilaterally. C6-C7: No evidence for degenerative disc disease. No disc bulge/herniation or protrusion. No Canal stenosis. Foramina are patent bilaterally. C7-T1: No evidence for degenerative disc disease. No disc bulge/herniation or protrusion. No Canal stenosis. Foramina are patent bilaterally. Cervical segments are intact. There is normal alignment. Cervical spinal cord is of normal signal. Craniovertebral junction relationships are within normal limits. IMPRESSION: 1. Degenerative disc disease and broad-based disc bulging at C5-6.
== END | disposition home or self-care (01) ==
LOC: RADMRIMAIN 11:04
PROVIDERS: ATTEND Orthopaedic Surgery
DX: M50.222 Other cervical disc displacement at C5-C6 level (principal); M50.322 Other cervical disc degeneration at C5-C6 level
CPT/HCPCS: 72141

== ENCOUNTER → 2021-09-13 | Outpatient (CLI) | payer OTHER ==
[2021-09-13 14:59] LABS: Basophils % (A) 0 %; Eosinophils # (A) 0.1 k/uL (0-0.7); Eosinophils % (A) 1 %; HCT 37.3 % (34.0-46.0); HGB 12.1 gm/dL (11.4-16.0); Lymphocytes # (A) 3.2 k/uL (1.0-4.8); Lymphocytes % (A) 41 %; MCH 31.2 pg (25.0-35.0); MCHC 32.5 g/dL (31.0-37.0); Mean Platelet Volume 8.1; Monocytes # (A) 0.4 k/uL (0-1.0); Monocytes % (A) 6 %; Neutrophils # (A) 3.9 k/uL (1.3-7.7); Neutrophils % (A) 50 %; Platelet Count 236 k/uL (150-450); RBC 3.88 m/uL (3.80-5.40); RDW 12.3 % (11.5-15.5); WBC 7.8 k/uL (3.8-10.6)
[2021-09-13 15:09] LABS: African American GFR (CKD) >90 (>60 ml/min/1.73 sqM); Anion Gap 8 mmol/L; Blood Urea Nitrogen 13 mg/dL (7-17); Carbon Dioxide 25 mmol/L (22-30); Chloride 105 mmol/L (98-107); Glucose 88 mg/dL (74-99); Non-African American GFR(CKD) >90 (>60 ml/min/1.73 sqM); Potassium 3.9 mmol/L (3.5-5.1); Sodium 138 mmol/L (137-145)
== END | disposition home or self-care (01) ==
LOC: LABPAT 13:52
PROVIDERS: ATTEND Obstetrics & Gynecology Obstetrics
DX: Z01.812 Encounter for preprocedural laboratory examination (principal); D25.9 Leiomyoma of uterus, unspecified; R10.2 Pelvic and perineal pain
CPT/HCPCS: 36415; 80051; 82565; 82947; 84520; 85025; 87086

== ENCOUNTER 2021-09-21 05:59 | Day surgery (SDC) | payer OTHER ==
[2021-09-14 08:50] VITALS: BMI 21.7
--- NOTE | 2021-09-20 16:00 | P.HPOB ---
History of Present Illness H&P Date: 09/20/21 Chief Complaint: uterine fibroids, pelvic pain This is a 41yo non female with known uterine fibroids. she is noting increasing pelvic pain, and pain with defecation. when she had her TL completed earlier last year uterus was noted to be mobile enlarged with multiple fibroids, one posterior in nature. this is most likely causing her discomfort. she denies urinary complaints, she has struggled with some bowel issues, diarrhea specifically and is dealing with PCP. she is done with childbearing and has had a tubal ligation completed. she is desirous of RAVH and ovarian conservation menses are regualr q month lasting 5-7 days Review of Systems Constitutional: Denies chills, Denies fatigue, Denies fever, Denies lethargy Ears, nose, mouth and throat: Denies headache Cardiovascular: Denies edema Respiratory: Denies dyspnea Gastrointestinal: Reports diarrhea, Reports hematochezia, Denies constipation, Denies nausea, Denies vomiting Genitourinary: Reports pelvic pain, Denies Menstruation: Reports period normal Past Medical History Additional Past Medical History / Comment(s): ovarian cysts, FIBROIDS History of Any Multi-Drug Resistant Organisms: None Reported Past Surgical History: Adenoidectomy, Cholecystectomy, Tonsillectomy, Tubal Ligation Additional Past Surgical History / Comment(s): OVARIAN CYST REMOVED FROM LT fallopian tube Past Anesthesia/Blood Transfusion Reactions: No Reported Reaction Smoking Status: Current every day smoker - Past Family History Mother Family Medical History: No Reported History Medications and Allergies Home Medications Medication Instructions Recorded Confirmed Type traZODone HCL 200 mg PO HS PRN 09/29/20 09/14/21 History Allergies Allergy/AdvReac Type Severity Reaction Status Date / Time latex Allergy Itching Verified 09/14/21 08:33 morphine Allergy Rash/Hives Verified 09/14/21 08:33 promethazine HCl Allergy Nausea & Verified 09/14/21 08:33 [From Phenergan] Vomiting Exam Osteopathic Statement: *. No significant issues noted on an osteopathic structural exam other than those noted in the History and Physical/Consult. gtargeted physical exam done on this date, in general this is a well nourished well developed female in no acute distress, breathing is non labored, heart has a regular rate and rhythm, abdomen is soft and non tender, on vaginal exam, external genitalia is normal for age no lesions appreciated, vaginal mucosa is pink and well rugated, uterus is bulky and enlarged, mobile, no cervical lesions are appreciated. Assessment and Plan (1) Uterine fibroid Status: Acute Code(s): D25.9 - LEIOMYOMA OF UTERUS, UNSPECIFIED SNOMED Code(s): 23694817 (2) Pelvic pain Status: Acute Code(s): R10.2 - PELVIC AND PERINEAL PAIN SNOMED Code(s): 04413764 Plan: Plan: ETIENNEH/MARY possible open. discussed ovarian conservation due to age as well risks discussed in detail and questions answered. she understands surgically risk if bleeding, infection, damage to bladder bowel or ureteric injury. she wishes to proceed.
[~2021-09-21 05:59] MED LIST changes: +ACETAMINOPHEN IV (For NPO) 1,000 MG in EMPTY BAG 1 BAG IVPB PRN; +HYDROmorphone 0.5 MG/0.5 ML SYRINGE IVP PRN; -LACTATED RINGERS 1,000 ML IV SCH; -LIDOCAINE 1% (10MG/ML) FOR IV START INTRADERMA PRN; -MIDAZOLAM 2 MG/2 ML VIAL IV PRN; -Pre Op ABX Message 1 EACH MISC MISCELLANE ONE
[2021-09-21] MEDS: LACTATED RINGERS 1,000 ML IV SCH ×2 (06:42→07:43)
[2021-09-21] MEDS ORDERED: LIDOCAINE 1% (10MG/ML) FOR IV START INTRADERMA ONE (06:43)
[2021-09-21] MEDS ORDERED: fentaNYL (PF) 50 MCG/ML 2 ML AMP IVP ONE (07:11)
[2021-09-21] MEDS ORDERED: MIDAZOLAM 2 MG/2 ML VIAL IVP ONE (07:11)
[2021-09-21] MEDS ORDERED: ROCURONIUM 10 MG/ML (5 ML VIAL) IV ONE (07:42)
[2021-09-21] MEDS ORDERED: fentaNYL (PF) 50 MCG/ML 2 ML AMP ONE (07:42)
[2021-09-21] MEDS ORDERED: PROPOFOL 10 MG/ML 20 ML VIAL IV ONE (07:42)
[2021-09-21] MEDS ORDERED: LIDOCAINE 1% INJ 10MG/ML (20 ML MDV) ONE (07:42)
[2021-09-21] MEDS ORDERED: GLYCOPYRROLATE 0.2 MG/ML 2 ML VIAL ONE (07:42)
[2021-09-21] MEDS ORDERED: ROPIVACAINE 5 MG/ML 30 ML VIAL ONE (07:42)
[2021-09-21] MEDS ORDERED: MIDAZOLAM 2 MG/2 ML VIAL ONE (07:42)
[2021-09-21] MEDS ORDERED: ACETAMINOPHEN IV (For NPO) 1,000 MG/100 ML VIAL ONE (07:42)
[2021-09-21] MEDS ORDERED: NEOSTIGMINE 1 MG/ML 10 ML VIAL ONE (07:42)
[2021-09-21] MEDS ORDERED: SUCCINYLCHOLINE CHLORIDE 100 MG/5 ML SYR IV ONE (07:42)
[2021-09-21] MEDS ORDERED: HYDROmorphone (PF) 1 MG/ML ONE (07:42)
[2021-09-21] MEDS ORDERED: BUPIVACAINE (PF) 0.25% 30 ML VIAL SQ ONE (08:44)
[2021-09-21] MEDS ORDERED: SIMETHICONE 80 MG CHEWABLE PO PRN (09:25)
[2021-09-21] MEDS ORDERED: IBUPROFEN 600 MG TAB PO PRN (09:25)
[2021-09-21] MEDS ORDERED: Acetaminophen-Codeine 300-30mg TAB PO PRN ×2 (09:25)
[2021-09-21] MEDS ORDERED: ONDANSETRON 4 MG/2 ML VIAL IVP PRN (09:25)
[2021-09-21] MEDS ORDERED: traZODone HCL 100 MG TAB PO PRN (09:27)
--- NOTE | 2021-09-21 09:36 | P.OP ---
Date of Procedure: 09/21/21 Preoperative Diagnosis: Uterine fibroids, pelvic pain Postoperative Diagnosis: Same Procedure(s) Performed: Robotic-assisted vaginal hysterectomy with diagnostic cystoscopy Anesthesia: LIANAA Surgeon: Yanni Acevedo Paper Spooler #1: Geovanna Taylor Estimated Blood Loss (ml): 5 IV fluids (ml): 800 Urine output (ml): 100 Pathology: other (The uterus) Condition: stable Disposition: PACU Indications for Procedure: Pelvic pain, known uterine fibroids, dyschezia Operative Findings: Globular uterus with fundal fibroid appreciated, normal ovaries were appreciated bilaterally. On cystoscopy normal bladder mucosa, her bubble was appreciated, intact bladder, bilateral flow noted from the urethral orifice Description of Procedure: Patient was seen in the preoperative area and informed consent was obtained. Patient was counseled on risks of surgery, including but not limited to infection, bleeding, damage to bladder, bowel, ureteric injury given enlarged fibroid uterus. Patient states understanding and wishes to proceed given her symptoms. Patient was taken back to the operating suite where general anesthesia was obtained without difficulty by the anesthesia department. She was then prepped and draped in normal sterile fashion in the dorsal lithotomy position. A Morales catheter was then placed under sterile technique. A weighted speculum placed in the posterior vaginal vault the anterior lip of the cervix is visualized and grasped with a single-tooth tenaculum. The endocervical canal was then dilated and a V care uterine made there was placed. After placement all instruments removed from the patient's vaginal vault and the cup was noted to be snugly against the cervix. Attention was then turned the patient's abdomen where a proximally 2 finger breaths above the umbilicus a skin incision is made. Through this incision appears needles placed. Once a very stable is deemed to be in the proper position with a drop of CO2 pressure with the insufflation of CO2 gas CO2 insufflation was allowed to occur. Approximately 3 L of gas or used to obtain pneumoperitoneum. At this time the 8 mm trocar and sleeve is placed through the incision with the laparoscope in place. This is placed under direct visualization. The above-noted findings are visualized. At this time the additional port sites are placed at 10 cm lateral and 37 m infe rior to midline port these are 8 mm ports and placed under direct visualization. In the left upper quadrant a 12 mm skin incision is made and a 12 mm trocar and sleeve is placed under direct visualization. At this time the da Sonal robot is docked in the usual fashion the operative arms are placed in the right operative arm the monopolar scissors, the left operative arm the bipolar forceps is pl aced. Attention then turned to the patient's left adnexa. The ovary was noted to be snugly against the posterior uterine wall therefore the fallopian tube which was adhesed to the ovary. Uterine ovarian ligament was then coagulated distally and proximally and divided. Hemostasis was appreciated throughout. This continued toward the broad ligament and toward the round ligament. The round ligament was coagulated distally and proximally and divided. The bladder flap from the left was then created using sharp and blunt dissection. The ascending branch of the uterine artery from the left was appreciated coagulated and transected. Hemostasis was appreciated. Attention was then turned to the patient's right uterine ovarian ligament which was finished visualized coagulated distally and proximally and divided. Hemostasis was appreciated. This continued through the broad ligament, and toward the round. The round ligament is coagulative distally and proximally divided. The bladder flap from the right was then created using sharp and blunt dissection. A segment to the uterine artery from the right was visualized coagulated and transected. Hemostasis was once again appreciated. At this time a Ray-Amaris was placed in the abdomen to further dissect the bladder away from the operating field. Ray-Amaris was then removed. At this time the only remaining attachment was a vaginal att achment therefore colpotomy incision was made. The uterus was then delivered through the vaginal opening along with the fibroid intact. The pelvis was then copiously irrigated and the vaginal cuff was found to be hemostatic. The vaginal cuff was closed with multiple maccae-hm-ecoul sutures of 0 Vicryl. Hemostasis was appreciated once again. At this time all instruments removed from the patient's abdomen. The da Sonal robot was undocked in the usual fashion, attention then turned to the patient's Morales catheter which was removed without difficulty. Clear yellow urine was noted in the catheter tubing. A cystoscope was then performed. The cystoscope was placed in the urethra and toward the bladder, normal bladder mucosa was appreciated, ureteral flow was noted from bilateral ureteral orifices. The cystoscope scope was removed along with the cystoscopy fluid. The Morales catheter was then replaced under sterile technique. Attention was then turned the patient's abdomen where the skin incisions were closed with 4-0 Vicryl in a subcuticular fashion. Steri-Strips and sterile dressings were applied. All counts were noted be correct 2 at the end of the procedure. The patient tolerated procedure well and was taken the recovery room awake in stable condition.
[2021-09-21] MEDS ORDERED: IBUPROFEN IV 800 MG in SODIUM CHLORIDE 0.9% 250 ML IV ONE (10:00)
--- NOTE | 2021-09-21 11:44 | P.ANPRN ---
Procedure Note - Anesthesia - Nerve Block Performed Bilateral Erector Spinae Single Time Out Performed: Yes Date of Procedure: 09/21/21 Procedure Start Time: 07:15 Procedure Stop Time: 07:25 Location of Patient: PreOp Indication: Acute Post-Operative Pain, Dx/Pain Location, Requested by Surgeon Specifically requested for management of pain by : Yanni Acevedo Sedation Type: Sedate with meaningful contact maintained Preparation: Sterile Prep Position: Sitting Catheter: None Needle Types: Vubiquity Needle Gauge: 21 Ultrasound used to visualize needle placement: Yes Ultrasound used to observe medication spread: Yes Injectate: 0.5% Ropivacaine (see comment for volume) Blood Aspirated: No Pain Paresthesia on Injection Noted: No Resistance on Injection: Normal Image Stored and Saved: Yes Events: Uneventful and Well Tolerated (30cc 0.5% ropivacaine)
[2021-09-21] MEDS: SENNOSIDES-DOCUSATE SODIUM 1 EACH TAB PO SCH (20:47)
[2021-09-22] MEDS ORDERED: ONDANSETRON 4 MG TAB PO PRN (08:49)
--- NOTE | 2021-09-22 08:53 | P.DS ---
Providers Date of admission: 09/21/2021 Expected date of discharge: 09/22/21 Attending physician: Yanni Acevedo Primary care physician: [facility] Diagnosis(es) (1) Uterine fibroid Current Visit: No Status: Acute (2) Pelvic pain Current Visit: No Status: Acute (3) S/P laparoscopic hysterectomy Current Visit: Yes Status: Acute Hospital Course: 41-year-old female that presented to the hospital yesterday on 09/21 for scheduled robotic-assisted vaginal hysterectomy. Patient has a known history of uterine fibroids and has been struggling with pelvic pain and pain with defecation. Patient desires definitive treatment with hysterectomy. Counseling was done in the office and patient agreed. Patient was taken back to the operating suite where surgery was performed without difficulty. Ovaries were felt to be grossly normal and left in situ. For full details on the surgery please see the operative report. Patient's postoperative course has been uneventful medically. Patient is ambulating and voiding without difficulty. She is tolerating a regular diet. She states her pain is controlled with oral ibuprofen. Patient did have an episode this morning with the car cooper to came into draw her blood she became irate and was verbally abusive to the car cooper. Labs were not drawn secondary to this. Patient is calm her this morning with myself. Patient is desirous of discharge, discharge orders given. Patient Condition at Discharge: Good Plan - Discharge Summary Discharge Rx Participant: Yes New Discharge Prescriptions: No Action traZODone HCL 200 mg PO HS PRN PRN Reason: SLEEP Discharge Medication List traZODone HCL 200 mg PO HS PRN 09/29/20 [History] Follow up Appointment(s)/Referral(s): Yanni Acevedo DO [Doctor of Osteopathic Medicine] - 2 Weeks Patient Instructions/Handouts: Laparoscopic Hysterectomy (DC), Laparoscopic Hysterectomy (GEN) Discharge Disposition: HOME SELF-CARE
[2021-09-22 09:08] VITALS: BP 124/73; PULSE 71; RESP 15; TEMP 98
[2021-09-22] MEDS ORDERED: ACETAMINOPHEN TAB 325 MG TAB PO PRN (09:27)
[2021-09-22] MEDS: SENNOSIDES-DOCUSATE SODIUM 1 EACH TAB PO SCH (10:05)
== END 2021-09-22 10:09 | disposition home or self-care (01) ==
LOC: OR 05:59 → 4FBP 09:22 → OR 09-22 10:09
PROVIDERS: ATTEND Obstetrics & Gynecology Obstetrics
DX: D25.9 Leiomyoma of uterus, unspecified (principal); R10.2 Pelvic and perineal pain; Z87.891 Personal history of nicotine dependence; Z98.890 Other specified postprocedural states; Z79.899 Other long term (current) drug therapy; Z88.5 Allergy status to narcotic agent; Z88.8 Allergy status to other drugs, medicaments and biological substances; Z91.040 Latex allergy status; Z20.822 Contact with and (suspected) exposure to COVID-19
CPT/HCPCS: 64999; 86900; 86901; 86850; 88307; 84703; 87635; 58180; J2250; J1100; J2710; J0690; J2405; J2001; J3010; J1170 ×2; J2795; J0131; J0330; J1741; J2704

== ENCOUNTER 2024-03-12 12:34 | Emergency (ER) | payer OTHER ==
[2024-03-12 12:47] VITALS: TEMP 98.4
--- NOTE | 2024-03-12 13:56 | ED ---
Psych HPI - General Chief Complaint: Psychiatric Symptoms Stated Complaint: Mental health eval Time Seen by Provider: 03/12/24 13:53 Source: patient, RN notes reviewed Mode of arrival: ambulatory - History of Present Illness Initial Comments: 43-year-old female with history anxiety presenting for mental health evaluation. Patient was seen at [facility] today and recommended further evaluation in the ER. Patient states she has been very anxious over the past couple weeks. She admits 15 pound weight loss in the past 3 weeks because she has not been eating due to stress. She is not currently on any medications. Denies any current chest pains, palpitations. Denies suicidal or homicidal ideology. States she is concerned because she has been having "episodes" where she describes she gets very weak, hot, and fatigued and needs to lay down. Admits previous substance abuse however denies any alcohol or drug use over the past month. - Related Data Previous Rx's Medication Instructions Recorded hydrOXYzine HCL [Atarax] 50 mg PO Q6HR PRN #15 tablet 03/12/24 Allergies Allergy/AdvReac Type Severity Reaction Status Date / Time latex Allergy Itching/carolina Verified 03/12/24 14:09 h morphine Allergy Nausea & Verified 03/12/24 14:09 Vomiting promethazine HCl Allergy Nausea & Verified 03/12/24 14:09 [From Phenergan] Vomiting Review of Systems ROS Statement: Those systems with pertinent positive or pertinent negative responses have been documented in the HPI. ROS Other: All systems not noted in ROS Statement are negative. Past Medical History Additional Past Medical History / Comment(s): ovarian cysts, anxiety History of Any Multi-Drug Resistant Organisms: None Reported Past Surgical History: Adenoidectomy, Cholecystectomy, Tonsillectomy, Tubal Ligation Additional Past Surgical History / Comment(s): lt fallopian tube removal Past Anesthesia/Blood Transfusion Reactions: No Reported Reaction Past Psychological History: Anxiety, Depression Past Drug Use History: None Reported - Past Family History Mother Family Medical History: No Reported History General Exam Limitations: no limitations General appearance: alert, in no apparent distress, anxious Head exam: Present: atraumatic, normocephalic, normal inspection Eye exam: Present: normal appearance, PERRL, EOMI. Absent: scleral icterus, conjunctival injection, periorbital swelling ENT exam: Present: normal exam, mucous membranes moist Neck exam: Present: normal inspection. Absent: tenderness, meningismus, lymphadenopathy Respiratory exam: Present: normal lung sounds bilaterally. Absent: respiratory distress, wheezes, rales, rhonchi, stridor Cardiovascular Exam: Present: regular rate, normal rhythm, normal heart sounds. Absent: systolic murmur, diastolic murmur, rubs, gallop, clicks Extremities exam: Present: normal inspection, full ROM, normal capillary refill. Absent: tenderness, pedal edema, joint swelling, calf tenderness Neurological exam: Present: alert, oriented X3, CN II-XII intact Psychiatric exam: Present: normal affect, normal mood, anxious Skin exam: Present: warm, dry, intact, normal color. Absent: rash Course Vital Signs 03/12/24 03/12/24 12:43 17:10 Temperature 98.4 F Pulse Rate 70 54 L Respiratory 18 16 Rate Blood Pressure 145/99 116/77 O2 Sat by Pulse 99 99 Oximetry Medical Decision Making - Medical Decision Making Was pt. sent in by a medical professional or institution (, PA, HEALTH AND SAFETY REPRESENTATIVE, urgent care, hospital, or correction...) When possible be specific @ -Sent by [facility] for evaluation Did you speak to anyone other than the patient for history (EMS, parent, family, police, friend...)? What history was obtained from this source @ -No Did you review nursing and triage notes (agree or disagree)? Why? @ -I reviewed and agree with nursing and triage notes Were old charts reviewed (outside hosp., previous admission, EMS record, old EKG, old radiological studies, urgent care reports/EKG's, correction records)? Report findings @ -No old charts were reviewed Differential Diagnosis (chest pain, altered mental status, abdominal pain women, abdominal pain men, vaginal bleeding, weakness, fever, dyspnea, syncope, headache, dizziness, GI bleed, back pain, seizure, CVA, palpatations, mental health, musculoskeletal)? @ -Differential Mental Health Depression, anxiety, bipolar, psychosis, schizophrenia, borderline personality, situational depression, adjustment disorder, behavioral disorder, brain tumor, malingering, substance abuse, encephalopathy, medication reaction, dementia, hypothyroidism, degenerative neurologic disorder, lupus.... This is not meant to be all-inclusive list EKG interpreted by me (3pts min.). @ -As above X-rays interpreted by me (1pt min.). @ -None done CT interpreted by me (1pt min.). @ -None done U/S interpreted by me (1pt. min.). @ -None done What testing was considered but not performed or refused? (CT, X-rays, U/S, labs)? Why? @ -None What meds were considered but not given or refused? Why? @ -None Did you discuss the management of the patient with other professionals (professionals i.e. , PA, HEALTH AND SAFETY REPRESENTATIVE, lab, RT, psych nurse, outreach and education social worker, home staging specialist, teacher, cra officer, director of casework department)? Give summary @ -Discussed case with Pito from [facility] who recommends discharge at this time with outpatient follow-up. He recommends sending patient home with an antianxiety medication to use as needed. Patient does not meet admission criteria at this time. There is low concern for SI or HI. Safety plan was discussed with patient in detail. I believe this plan is reasonable at this time. Was smoking cessation discussed for >3mins.? @ -No Was critical care preformed (if so, how long)? @ -No Were there social determinants of health that impacted care today? How? (Homelessness, low income, unemployed, alcoholism, drug addiction, transportation, low edu. Level, literacy, decrease access to med. care, prison, rehab)? @ -No Was there de-escalation of care discussed even if they declined (Discuss DNR or withdrawal of care, Hospice)? DNR status @ -No What co-morbidities impacted this encounter? (DM, HTN, Smoking, COPD, CAD, Cancer, CVA, ARF, Chemo, Hep., AIDS, mental health diagnosis, sleep apnea, morbid obesity)? @ -Generalized anxiety disorder Was patient admitted / discharged? Hospital course, mention meds given and route, prescriptions, significant lab abnormalities, going to OR and other pertinent info. @ -Patient was discharged. Patient was seen and evaluated for worsening anxiety over the past few weeks. Patient was also concerned about episodes of fatigue and weakness she had 2 times over the past few months. Patient is currently asymptomatic. Vital signs are stable, there is no acute distress. Physical examination is unremarkable. Basic lab work including CBC, CMP was unremarkable. EKG revealed sinus bradycardia with no ST changes. Discussed with patient that there is no sign of emergent etiology causing episodes at this time and advised close follow-up with PCP for further evaluation. Patient was medically cleared to see [facility] at this time. Discussed case with Pito from [facility] who recommends discharge at this time with outpatient follow-up, patient does not meet admission criteria at this time. Patient denies SI or HI. Safety plan was discussed with patient in detail, she has scheduled outpatient follow-up, and safety plan was discussed. Hydroxyzine was prescribed to use as needed for anxiety. Return/alarm symptoms discussed with patient in detail and she shows understanding agrees to plan. Case discussed with my attending Dr. Mahoney. Patient was discharged in stable condition. Undiagnosed new problem with uncertain prognosis? @ -No Drug Therapy requiring intensive monitoring for toxicity (Heparin, Nitro, Insulin, Cardizem)? @ -No Were any procedures done? @ -No Diagnosis/symptom? @ -Generalized anxiety disorder Acute, or Chronic, or Acute on Chronic? @ -Acute on chronic Uncomplicated (without systemic symptoms) or Complicated (systemic symptoms)? @ -Uncomplicated Side effects of treatment? @ -No Exacerbation, Progression, or Severe Exacerbation? @ -No Poses a threat to life or bodily function? How? (Chest pain, USA, MS, pneumonia, PE, COPD, DKA, ARF, appy, cholecystitis, CVA, Diverticulitis, Homicidal, Suicidal, threat to staff... and all critical care pts) @ -Low likelihood - Lab Data Result diagrams: 03/12/24 14:03 03/12/24 14:03 Lab Results 03/12/24 03/12/24 03/12/24 Range/Units 14:03 14:03 14:51 WBC 7.6 (3.8-10.6) k/uL RBC 4.27 (3.80-5.40) m/uL Hgb 13.1 (11.4-16.0) gm/dL Hct 40.2 (34.0-46.0) % MCV 94.2 (80.0-100.0) fL MCH 30.6 (25.0-35.0) pg MCHC 32.5 (31.0-37.0) g/dL RDW 13.1 (11.5-15.5) % Plt Count 273 (150-450) k/uL MPV 7.9 Neutrophils % 60 % Lymphocytes % 31 % Monocytes % 6 % Eosinophils % 1 % Basophils % 1 % Neutrophils # 4.5 (1.3-7.7) k/uL Lymphocytes # 2.4 (1.0-4.8) k/uL Monocytes # 0.5 (0-1.0) k/uL Eosinophils # 0.1 (0-0.7) k/uL Basophils # 0.1 (0-0.2) k/uL Sodium 138 (137-145) mmol/L Potassium 3.8 (3.5-5.1) mmol/L Chloride 111 H (98-107) mmol/L Carbon Dioxide 21 L (22-30) mmol/L Anion Gap 6 mmol/L BUN 11 (7-17) mg/dL Creatinine 0.52 (0.52-1.04) mg/dL Est GFR (CKD-EPI)AfAm >90 (>60 ml/min/1.73 sqM) Est GFR (CKD-EPI)NonAf >90 (>60 ml/min/1.73 sqM) Glucose 85 (74-99) mg/dL Calcium 9.4 (8.4-10.2) mg/dL Total Bilirubin 0.6 (0.2-1.3) mg/dL AST 18 (14-36) U/L ALT 11 (4-34) U/L Alkaline Phosphatase 39 (38-126) U/L Total Protein 6.9 (6.3-8.2) g/dL Albumin 4.6 (3.5-5.0) g/dL Urine Opiates Screen Not Detected (NotDetected) Ur Oxycodone Screen Not Detected (NotDetected) Urine Methadone Screen Not Detected (NotDetected) Ur Barbiturates Screen Not Detected (NotDetected) U Tricyclic Antidepress Not Detected (NotDetected) Ur Phencyclidine Scrn Not Detected (NotDetected) Ur Amphetamines Screen Not Detected (NotDetected) U Methamphetamines Scrn Not Detected (NotDetected) U Benzodiazepines Scrn Not Detected (NotDetected) Urine Cocaine Screen Not Detected (NotDetected) U Marijuana (THC) Screen Detected H (NotDetected) - EKG Data -: EKG Interpreted by Me EKG Comments: EKG reveals sinus bradycardia with no ST changes. Ventricular rate 51 bpm, IN interval 118, QRS duration 86, QT/QTc 417/395 Disposition Clinical Impression: Generalized anxiety disorder Disposition: HOME SELF-CARE Condition: Stable Instructions (If sedation given, give patient instructions): Generalized An xiety Disorder (ED) Additional Instructions: Take hydralazine as needed for anxiety. Please follow-up as discussed. Please return to the Emergency Department if symptoms worsen or any other concerns. Prescriptions: hydrOXYzine HCL [Atarax] 50 mg PO Q6HR PRN #15 tablet PRN Reason: Anxiety Is patient prescribed a controlled substance at d/c from ED?: No Referrals: [facility] [Primary Care Provider] - 1-2 days Time of Disposition: 17:03
[2024-03-12 14:09] LABS: Basophils # (A) 0.1 k/uL (0-0.2); Basophils % (A) 1 %; Eosinophils # (A) 0.1 k/uL (0-0.7); Eosinophils % (A) 1 %; HCT 40.2 % (34.0-46.0); HGB 13.1 gm/dL (11.4-16.0); Lymphocytes # (A) 2.4 k/uL (1.0-4.8); Lymphocytes % (A) 31 %; MCH 30.6 pg (25.0-35.0); MCHC 32.5 g/dL (31.0-37.0); MCV 94.2 fL (80.0-100.0); Mean Platelet Volume 7.9; Monocytes # (A) 0.5 k/uL (0-1.0); Monocytes % (A) 6 %; Neutrophils # (A) 4.5 k/uL (1.3-7.7); Neutrophils % (A) 60 %; Platelet Count 273 k/uL (150-450); RBC 4.27 m/uL (3.80-5.40); RDW 13.1 % (11.5-15.5); WBC 7.6 k/uL (3.8-10.6)
[2024-03-12 14:19] LABS: ALT 11 U/L (4-34); AST 18 U/L (14-36); African American GFR (CKD) >90 (>60 ml/min/1.73 sqM); Albumin 4.6 g/dL (3.5-5.0); Alkaline Phosphatase 39 U/L (38-126); Anion Gap 6 mmol/L; Blood Urea Nitrogen 11 mg/dL (7-17); Calcium 9.4 mg/dL (8.4-10.2); Carbon Dioxide 21 mmol/L (22-30); Chloride 111 mmol/L (98-107); Glucose 85 mg/dL (74-99); Non-African American GFR(CKD) >90 (>60 ml/min/1.73 sqM); Potassium 3.8 mmol/L (3.5-5.1); Sodium 138 mmol/L (137-145); Total Bilirubin 0.6 mg/dL (0.2-1.3); Total Protein 6.9 g/dL (6.3-8.2)
[2024-03-12 15:22] LABS: Amphetamine Screen,Urine Not Detected (NotDetected); Barbiturate Screen,Urine Not Detected (NotDetected); Benzodiazepines Screen,Urine Not Detected (NotDetected); Cocaine Screen,Urine Not Detected (NotDetected); Methadone Screen, Urine Not Detected (NotDetected); Opiate Screen,Urine Not Detected (NotDetected); Oxycodone Screen, Urine Not Detected (NotDetected); Phencyclidine Screen,Urine Not Detected (NotDetected); Tricyclic Antidepressant,Urine Not Detected (NotDetected); Urn Cannabinoid Scrn Detected (NotDetected)
[2024-03-12 17:13] VITALS: BP 116/77; PULSE 54; RESP 16
== END 2024-03-12 17:13 | disposition home or self-care (01) ==
LOC: EC 12:34
DX: F41.1 Generalized anxiety disorder (principal); Z88.5 Allergy status to narcotic agent; Z91.040 Latex allergy status; Z88.8 Allergy status to other drugs, medicaments and biological substances
CPT/HCPCS: 36415; 80053; 80306; 85025; 93005; 99285

== ENCOUNTER 2024-07-16 17:13 | Emergency (ER) | payer OTHER ==
--- NOTE | 2024-07-16 18:20 | ED ---
Headache HPI - General Chief Complaint: Headache Stated Complaint: headache Time Seen by Provider: 07/16/24 17:27 Source: patient Mode of arrival: ambulatory Limitations: no limitations - History of Present Illness Initial Comments: This is a 44-year-old female with history of open and closed TBI's presenting with "worst headache of my life" x 16 hours. Patient states she woke this morning at 4 AM with severe (10 out of 10) constant, stabbing bilateral uatsdin pain. Patient states pain radiates to jaw endorses associated blurred vision, photophobia, phonophobia and nausea patient denies recent trauma or history of migraines. Patient endorses family history of cerebral aneurysms. Patient denies fever, chills, neck stiffness, back pain, dizziness, altered mental status, altered LOC, chest pain, dyspnea, abdominal pain. MD Complaint: headache Onset/Timin -: hour(s) Time: 04:00 Onset Description: sudden Location: temporal Severity scale (1-10): 10 Quality: sharp, worst headache of life Consistency: constant Worsens With: light, noise Context: occurred at rest Associated Symptoms: nausea, photophobia, sensitivity to sound - Related Data Home Medications Medication Instructions Recorded Confirmed Sertraline [Zoloft] 50 mg PO DIRECTED 07/16/24 07/16/24 traZODone HCL [Desyrel] 100 mg PO HS PRN 07/16/24 07/16/24 Previous Rx's Medication Instructions Recorded SUMAtriptan succinate 100 mg PO DIRECTED PRN #10 07/16/24 tablet Allergies Allergy/AdvReac Type Severity Reaction Status Date / Time latex Allergy Itching/carolina Verified 07/16/24 20:50 h morphine Allergy Nausea & Verified 07/16/24 20:50 Vomiting promethazine HCl Allergy Nausea & Verified 07/16/24 20:50 [From Phenergan] Vomiting Review of Systems ROS Statement: Those systems with pertinent positive or pertinent negative responses have been documented in the HPI. ROS Other: All systems not noted in ROS Statement are negative. Past Medical History Additional Past Medical History / Comment(s): ovarian cysts, anxiety History of Any Multi-Drug Resistant Organisms: None Reported Past Surgical History: Adenoidectomy, Cholecystectomy, Tonsillectomy, Tubal Ligation Additional Past Surgical History / Comment(s): lt fallopian tube removal Past Anesthesia/Blood Transfusion Reactions: No Reported Reaction Past Psychological History: Anxiety, Depression Smoking Status: Current every day smoker Past Alcohol Use History: None Reported Past Drug Use History: None Reported - Past Family History Mother Family Medical History: No Reported History General Exam - General Exam Comments Initial Comments: Visual Physical Exam Vital signs reviewed General: Well-appearing, nontoxic Head: Normocephalic, atraumatic Eyes: PERRLA, EOMI ENT: Airway patent Chest: Nonlabored breathing Skin: No visual rash, normal skin tone Neuro: Alert and oriented 3 Musculoskeletal: No gross abnormalities Limitations: no limitations General appearance: alert, anxious (Patient appears in distress and tearful) Head exam: Present: atraumatic, normocephalic, normal inspection Eye exam: Present: normal appearance, PERRL, EOMI. Absent: scleral icterus, conjunctival injection, periorbital swelling ENT exam: Present: normal exam, mucous membranes moist Neck exam: Present: normal inspection. Absent: tenderness, meningismus, lymphadenopathy Respiratory exam: Present: normal lung sounds bilaterally. Absent: respiratory distress, wheezes, rales, rhonchi, stridor Cardiovascular Exam: Present: regular rate, normal rhythm, normal heart sounds. Absent: systolic murmur, diastolic murmur, rubs, gallop, clicks GI/Abdominal exam: Present: soft, normal bowel sounds. Absent: distended, tenderness, guarding, rebound, rigid Extremities exam: Present: normal inspection, full ROM, normal capillary refill. Absent: tenderness, pedal edema, joint swelling, calf tenderness Back exam: Present: normal inspection Neurological exam: Present: alert, oriented X3, CN II-XII intact Psychiatric exam: Present: normal affect, normal mood Skin exam: Present: warm, dry, intact, normal color. Absent: rash Course Vital Signs 07/16/24 07/16/24 07/16/24 17:24 21:27 22:33 Temperature 99.1 F Pulse Rate 91 87 90 Respiratory 18 17 17 Rate Blood Pressure 126/81 160/67 111/65 O2 Sat by Pulse 97 96 97 Oximetry 07/16/24 22:50 Temperature 98.9 F Pulse Rate Respiratory Rate Blood Pressure O2 Sat by Pulse Oximetry Medical Decision Making - Medical Decision Making I completed the quick note portion of this chart signed EL Gallardo Was pt. sent in by a medical professional or institution (SUSAN Sandhu, UNIFORM ATTENDANT, urgent care, hospital, or long-term...) When possible be specific @ -No Did you speak to anyone other than the patient for history (EMS, parent, family, police, friend...)? What history was obtained from this source @ -No Did you review nursing and triage notes (agree or disagree)? Why? @ -I reviewed and agree with nursing and triage notes Were old charts reviewed (outside hosp., previous admission, EMS record, old EKG, old radiological studies, urgent care reports/EKG's, long-term records)? Report findings @ -No old charts were reviewed Differential Diagnosis (chest pain, altered mental status, abdominal pain women, abdominal pain men, vaginal bleeding, weakness, fever, dyspnea, syncope, headache, dizziness, GI bleed, back pain, seizure, CVA, palpatations, mental health, musculoskeletal)? @ -Differential Headache: Migraine, tension, cluster, carbon monoxide, central venous thrombosis, pension karma temporal arteritis, acute closure glaucoma, intercranial hemorrhage, mastoiditis, sinusitis, head injury, this is not meant to be an all-inclusive list. EKG interpreted by me (3pts min.). @ -Not done X-rays interpreted by me (1pt min.). @ -None done CT interpreted by me (1pt min.). @ -CT brain reveals no intracranial hemorrhage, aneurysm, ischemia or infarction U/S interpreted by me (1pt. min.). @ -None done What testing was considered but not performed or refused? (CT, X-rays, U/S, labs)? Why? @ -None What meds were considered but not given or refused? Why? @ -None Did you discuss the management of the patient with other professionals (professionals i.e. SUSAN Sandhu, UNIFORM ATTENDANT, lab, RT, psych nurse, social research assistant, vamp marker, teacher, seismology technical officer, case management social worker)? Give summary @ -No Was smoking cessation discussed for >3mins.? @ -No Was critical care preformed (if so, how long)? @ -No Were there social determinants of health that impacted care today? How? (Homelessness, low income, unemployed, alcoholism, drug addiction, transportation, low edu. Level, literacy, decrease access to med. care, fci, rehab)? @ -No Was there de-escalation of care discussed even if they declined (Discuss DNR or withdrawal of care, Hospice)? DNR status @ -No What co-morbidities impacted this encounter? (DM, HTN, Smoking, COPD, CAD, Cancer, CVA, ARF, Chemo, Hep., AIDS, mental health diagnosis, sleep apnea, morbid obesity)? @ -None Was patient admitted / discharged? Hospital course, mention meds given and route, prescriptions, significant lab abnormalities, going to OR and other pertinent info. @ -Discharge. Brain CT was unremarkable. Patient given IV Toradol, Zofran and Benadryl. Patient endorses ongoing pain. IV Dilaudid and magnesium with normal saline given. Patient notes significant relief of symptoms following this. Patient notes significant relief of symptoms. Sumatriptan sent to pharmacy and patient sent home with Zofran starter pack. Undiagnosed new problem with uncertain prognosis? @ -No Drug Therapy requiring intensive monitoring for toxicity (Heparin, Nitro, Insulin, Cardizem)? @ -No Were any procedures done? @ -No Diagnosis/symptom? @ -Acute migraine Acute, or Chronic, or Acute on Chronic? @ -Acute Uncomplicated (without systemic symptoms) or Complicated (systemic symptoms)? @ -Uncomplicated Side effects of treatment? @ -No Exacerbation, Progression, or Severe Exacerbation? @ -Exacerbation Poses a threat to life or bodily function? How? (Chest pain, [place], [place], pneumonia, PE, COPD, DKA, ARF, appy, cholecystitis, CVA, Diverticulitis, Homicidal, Suicidal, threat to staff... and all critical care pts) @ -No Disposition Clinical Impression: Migraine Disposition: HOME SELF-CARE Condition: Good Instructions (If sedation given, give patient instructions): Migraine Headache (ED) Prescriptions: SUMAtriptan succinate 100 mg PO DIRECTED PRN #10 tablet PRN Reason: Pain Is patient prescribed a controlled substance at d/c from ED?: No Referrals: [facility] [Primary Care Provider] - 1-2 days Time of Disposition: 22:27
--- NOTE | 2024-07-16 19:24 | CT ---
EXAMINATION TYPE: CT brain wo/w con DATE OF EXAM: 07/16/2024 COMPARISON: 03/08/2014 INDICATION: Headache x 15 hours, worst of life DLP: 2318.4 mGycm, Automated exposure control for dose reduction was used. CONTRAST: None CT of the brain is performed utilizing 3 mm thick sections through the posterior fossa and 3 mm thick sections through the remaining calvarium. Study is performed within 24 hours of arrival to the hosp ital. No abnormal hyperdensity is present to suggest an acute intracranial hemorrhage. No subarachnoid hemo rrhage identified. Small calcification may be within the left temporal region, present previously No acute infarcts are evident. Ventricles and sulci are appropriate for the patient age. Paranasal sinuses and mastoid air cells within the [id number] are clear. No suspicious enhancement evident. Vascular structures appear unremarkable as visualized. IMPRESSION: 1. No acute intracranial process. Follow up MRI can be performed as clinically indicated. [facility], Workstation: [facility], 07/16/2024 7:22 PM
[2024-07-16] MEDS: KETOROLAC 15 MG/ML 1 ML VIAL IVP STA (20:00)
[2024-07-16] MEDS: ONDANSETRON 4 MG/2 ML VIAL IVP STA (20:00)
[2024-07-16] MEDS: diphenhydrAMINE 50 MG/ML 1 ML VIAL IVP STA (20:02)
[2024-07-16] MEDS: HYDROmorphone 0.5 MG/0.5 ML SYRINGE IVP STA (21:22)
[2024-07-16] MEDS: SODIUM CHLORIDE 0.9% 1,000 ML IV STA (21:23)
[2024-07-16] MEDS: MAGNESIUM SULFATE-D5W PMX 1 GM in DEXTROSE/WATER 1 100ML.BAG IVPB ONE (21:23)
[2024-07-16 22:35] VITALS: BP 111/65; PULSE 90; RESP 17
[2024-07-16] MEDS: ONDANSETRON 4 MG ODT STARTER PACK 2 TAB BTL PO STA (22:38)
[2024-07-16 22:52] VITALS: TEMP 98.9
== END 2024-07-16 22:50 | disposition home or self-care (01) ==
LOC: EC 17:13
CPT/HCPCS: 70470; 96365; 96375; 99284

== ENCOUNTER 2024-08-05 11:22 | Observation (INO) | payer OTHER ==
--- NOTE | 2024-08-05 11:26 | ED ---
Headache HPI - General Chief Complaint: Headache Stated Complaint: migraine Time Seen by Provider: 08/05/24 11:37 Source: patient, RN notes reviewed Mode of arrival: ambulatory Limitations: no limitations - History of Present Illness Initial Comments: This is a 44-year-old who is presenting to the emergency department chief complaint of migraine headache. Patient states that she was evaluated emergency department few weeks ago for migraine headache and states that she has been having intermittent headaches since this time. States that she took prescribed Imitrex which has not helped to alleviate symptoms. States that the pain is most severe over her right jaw and left sikh. Patient took Zofran earlier today. She endorses photophobia, phonophobia, nausea. She denies focal neurological deficits, weakness, or parasthesias. Denies chest pain, shortness of breath, difficulty breathing, fevers, chills, cough, rhinorrhea or congest ion. Patient denies chance of . MD Complaint: headache -: days(s) - Related Data Home Medications Medication Instructions Recorded Confirmed traZODone HCL [Desyrel] 100 mg PO HS 07/16/24 08/05/24 Aspirin/Acetaminophen/Caffeine 1 - 2 tab PO DAILY PRN 08/05/24 08/05/24 [Excedrin Extra Strength Caplet] Venlafaxine HCl [Effexor XR] 37.5 mg PO DIRECTED 08/05/24 08/05/24 cloNIDine HCL [Catapres] 0.05 mg PO BID PRN 08/05/24 08/05/24 Allergies Allergy/AdvReac Type Severity Reaction Status Date / Time latex Allergy Itching/carolina Verified 08/05/24 14:41 h morphine Allergy Nausea & Verified 08/05/24 14:41 Vomiting promethazine HCl Allergy Nausea & Verified 08/05/24 14:41 [From Phenergan] Vomiting sumatriptan [From Imitrex] AdvReac Rapid Verified 08/05/24 15:01 Heart Rate Review of Systems ROS Statement: Those systems with pertinent positive or pertinent negative responses have been documented in the HPI. ROS Other: All systems not noted in ROS Statement are negative. Past Medical History Additional Past Medical History / Comment(s): ovarian cysts, anxiety, migraine headches. History of Any Multi-Drug Resistant Organisms: None Reported Past Surgical History: Adenoidectomy, Cholecystectomy, Tonsillectomy, Tubal Ligation Additional Past Surgical History / Comment(s): lt fallopian tube removal Past Anesthesia/Blood Transfusion Reactions: No Reported Reaction Past Psychological History: Anxiety, Depression Smoking Status: Current every day smoker Past Alcohol Use History: None Reported Past Drug Use History: None Reported - Past Family History Mother Family Medical History: No Reported History General Exam Limitations: no limitations General appearance: alert, in no apparent distress Head exam: Present: atraumatic, normocephalic, normal inspection Eye exam: Present: normal appearance, PERRL, EOMI. Absent: scleral icterus, conjunctival injection, periorbital swelling Neck exam: Present: normal inspection. Absent: tenderness, meningismus, lymphadenopathy Respiratory exam: Present: normal lung sounds bilaterally. Absent: respiratory distress, wheezes, rales, rhonchi, stridor Cardiovascular Exam: Present: regular rate, normal rhythm, normal heart sounds. Absent: systolic murmur, diastolic murmur, rubs, gallop, clicks GI/Abdominal exam: Present: soft, normal bowel sounds. Absent: distended, tenderness, guarding, rebound, rigid Extremities exam: Present: normal inspection, full ROM, normal capillary refill. Absent: tenderness, pedal edema, joint swelling, calf tenderness Back exam: Present: normal inspection Neurological exam: Present: alert, oriented X3, CN II-XII intact Course Vital Signs 08/05/24 11:23 Temperature 98.4 F Pulse Rate 80 Respiratory 20 Rate Blood Pressure 114/84 O2 Sat by Pulse 99 Oximetry Medical Decision Making - Medical Decision Making Was pt. sent in by a medical professional or institution (, PA, FLIGHT ENGINEER INSTRUCTOR, urgent care, hospital, or [facility]...) When possible be specific @ -No Did you speak to anyone other than the patient for history (EMS, parent, family, police, friend...)? What history was obtained from this source @ -No Did you review nursing and triage notes (agree or disagree)? Why? @ -I reviewed and agree with nursing and triage notes Were old charts reviewed (outside hosp., previous admission, EMS record, old EKG, old radiological studies, urgent care reports/EKG's, [facility] records)? Report findings @ -Reviewed patient's previous CT scan of the brain, with and without contrast, completed 07/16/24, revealed no acute intracranial process Differential Diagnosis (chest pain, altered mental status, abdominal pain women, abdominal pain men, vaginal bleeding, weakness, fever, dyspnea, syncope, headache, dizziness, GI bleed, back pain, seizure, CVA, palpatations, mental health, musculoskeletal)? @ -Differential Headache: Migraine, tension, cluster, carbon monoxide, central venous thrombosis, pension karma temporal arteritis, acute closure glaucoma, intercranial hemorrhage, mastoiditis, sinusitis, head injury, this is not meant to be an all-inclusive list. EKG interpreted by me (3pts min.). @ -None X-rays interpreted by me (1pt min.). @ -None done CT interpreted by me (1pt min.). @ -CTA unremarkable for acute process and or aneurysm U/S interpreted by me (1pt. min.). @ -None done What testing was considered but not performed or refused? (CT, X-rays, U/S, labs)? Why? @ -None What meds were considered but not given or refused? Why? @ -None Did you discuss the management of the patient with other professionals (professionals i.e. , PA, FLIGHT ENGINEER INSTRUCTOR, lab, RT, psych nurse, social media marketing analyst, manufacturing engineering director, teacher, deck officer, rn case management)? Give summary @ -Spoke with sound internal medicine physician in regard to admission was agreed with neurology on consult Was smoking cessation discussed for >3mins.? @ -No Was critical care preformed (if so, how long)? @ -No Were there social determinants of health that impacted care today? How? (Homelessness, low income, unemployed, alcoholism, drug addiction, transportation, low edu. Level, literacy, decrease access to med. care, longterm, rehab)? @ -No Was there de-escalation of care discussed even if they declined (Discuss DNR or withdrawal of care, Hospice)? DNR status @ -No What co-morbidities impacted this encounter? (DM, HTN, Smoking, COPD, CAD, Cancer, CVA, ARF, Chemo, Hep., AIDS, mental health diagnosis, sleep apnea, morbid obesity)? @ -tobacco abuse Was patient admitted / discharged? Hospital course, mention meds given and route, prescriptions, significant lab abnormalities, going to OR and other pertinent info. @ -Admitted. 44-year-old female with headache. On my initial evaluation the patient she is noted to have sunglasses on and states that photophobia is severe with her headache. Also stable. Neurological examination with no acute deficits. Patient provided with migraine cocktail. On reevaluation, states that symptoms have not improved after medications. CT of the brain ordered with no acute findings. After opioid administration patient states that migraine symptoms have still not resolved. At this time patient will be admitted to internal medicine with neurology consult for further evaluation of intractable headache. Patient is given antiemetics and ordered pain medication as needed. Discussed with Dr. Segura Undiagnosed new problem with uncertain prognosis? @ -No Drug Therapy requiring intensive monitoring for toxicity (Heparin, Nitro, Insulin, Cardizem)? @ -No Were any procedures done? @ -No Diagnosis/symptom? @ -Intractable headache Acute, or Chronic, or Acute on Chronic? @ -Acute Uncomplicated (without systemic symptoms) or Complicated (systemic symptoms)? @ -Uncomplicated Side effects of treatment? @ -No Exacerbation, Progression, or Severe Exacerbation? @ -No Poses a threat to life or bodily function? How? (Chest pain, [place], [place], pneumonia, PE, COPD, DKA, ARF, appy, cholecystitis, CVA, Diverticulitis, Homicidal, Suicidal, threat to staff... and all critical care pts) @ -No - Lab Data Result diagrams: 08/05/24 16:04 08/05/24 16:04 Disposition Clinical Impression: Intractable headache Disposition: ADMITTED IP TO THIS [facility] Condition: Stable Decision to Admit Reason: Admit from EC Decision Date: 08/05/24 Decision Time: 14:10
[2024-08-05] MEDS: MAGNESIUM SULFATE-D5W PMX 1 GM in DEXTROSE/WATER 1 100ML.BAG IVPB ONE (11:50)
[2024-08-05] MEDS: ACETAMINOPHEN TAB 500 MG TAB PO STA (11:50)
[2024-08-05] MEDS: SODIUM CHLORIDE 0.9% 1,000 ML IV STA (11:51)
[2024-08-05] MEDS: DEXAMETHASONE SOD PHOSPHATE 10 MG/ML 1 ML VIAL IVP STA (11:51)
[2024-08-05] MEDS: KETOROLAC 15 MG/ML 1 ML VIAL IVP STA (11:51)
[2024-08-05] MEDS: diphenhydrAMINE 50 MG/ML 1 ML VIAL IVP STA (11:52)
--- NOTE | 2024-08-05 13:21 | CT ---
EXAMINATION TYPE: CT angio head CT DLP: 2539.4 mGycm, Automated exposure control for dose reduction was used. DATE OF EXAM: 08/05/2024 1:14 PM COMPARISON: CT brain 07/16/2024. CLINICAL INDICATION:Female, 44 years old with history of intermittent OWENS 3 weeks, N, photophobia; PHH , headaches in temples and left eye twitching x3 weeks TECHNIQUE: Axially acquired helical CT angiogram of the head was obtained before and after contrast u tilizing 65 cc of Isovue-370 administered intravenously. Axial images are supplemented with 3D recons tructions which were post-processed at an independent workstation. NASCET criteria used. FINDINGS: No evidence of acute intracranial hemorrhage, mass effect, or midline shift. The ventricles, sulci, a nd cisterns are unremarkable. The visualized portions of the internal carotid arteries, middle cerebral arteries, anterior cerebral arteries, and posterior cerebral arteries are patent. origin left BARREL LATHE OPERATOR. The basilar and vertebral arteries are patent. IMPRESSION: No evidence of high-grade stenosis or intracranial aneurysm. [facility], , 08/05/2024 1:18 PM
[2024-08-05] MEDS: HYDROmorphone 1 MG/ML 1 ML SYRINGE IVP STA (14:00)
[2024-08-05] MEDS ORDERED: NALOXONE 0.4 MG/ML 1 ML VIAL IV PRN (14:10)
[2024-08-05] MEDS ORDERED: IBUPROFEN 400 MG TAB PO PRN (14:10)
[2024-08-05] MEDS ORDERED: ACETAMINOPHEN TAB 325 MG TAB PO PRN (14:10)
[2024-08-05] MEDS: SODIUM CHLORIDE 0.9% 1,000 ML IV SCH (14:35)
[2024-08-05] MEDS: ONDANSETRON 4 MG/2 ML VIAL IVP PRN (14:53)
[2024-08-05 16:14] LABS: Basophils % (A) 0 %; Eosinophils # (A) 0.1 k/uL (0-0.7); Eosinophils % (A) 1 %; HCT 35.5 % (34.0-46.0); HGB 11.9 gm/dL (11.4-16.0); Lymphocytes # (A) 0.9 k/uL (1.0-4.8); Lymphocytes % (A) 7 %; MCH 31.4 pg (25.0-35.0); MCHC 33.7 g/dL (31.0-37.0); MCV 93.3 fL (80.0-100.0); Mean Platelet Volume 7.6; Monocytes # (A) 0.1 k/uL (0-1.0); Monocytes % (A) 1 %; Neutrophils # (A) 10.8 k/uL (1.3-7.7); Neutrophils % (A) 90 %; Platelet Count 201 k/uL (150-450); RDW 12.2 % (11.5-15.5)
[2024-08-05 16:29] LABS: ALT 12 U/L (4-34); AST 20 U/L (14-36); African American GFR (CKD) >90 (>60 ml/min/1.73 sqM); Albumin 4.1 g/dL (3.5-5.0); Alkaline Phosphatase 43 U/L (38-126); Anion Gap 8 mmol/L; Blood Urea Nitrogen 13 mg/dL (7-17); Calcium 8.6 mg/dL (8.4-10.2); Carbon Dioxide 15 mmol/L (22-30); Chloride 110 mmol/L (98-107); Glucose 183 mg/dL (74-99); Non-African American GFR(CKD) >90 (>60 ml/min/1.73 sqM); Potassium 4.3 mmol/L (3.5-5.1); Sodium 133 mmol/L (137-145); Total Bilirubin 0.7 mg/dL (0.2-1.3); Total Protein 6.5 g/dL (6.3-8.2)
--- NOTE | 2024-08-05 17:07 | P.CNNES ---
History of Present Illness Consult date: 08/05/24 Requesting physician: Jaclyn Amaral Reason for Consult: intractable migraine History of Present Illness: This is a 44-year-old woman who presented emergency department because of recurrence of her headache. She stated for the last 3 weeks she has been been having headache every 3 days and she feels the headache is over the bilateral temporal region and she feels it is a stabbing and it is more right more than the left without any radiation. She also has photophobia and phonophobia. She also had nausea and vomiting earlier this morning. She stated that she has been having this for the last 3 weeks and again it is happening every 3 days. She also stated that she had left eye twitch associate with this. Her headache was 10/10 mostly happens at night but sometimes in the morning and last more than 4 hours and she felt in the past she had alleviation with Excedrin migraine 2 tablets. She stated that she could not tolerate sumatriptan. She denies any history of migraine in the past. She denies any focal weakness, numbness, visual disturbance. She feels now today after getting migraine cocktail by the ED team her headache is down to 2-3/10. She had a CT of the head which was unremarkable. States she has partial hysterectomy. Some of the workup during this hospital visit consisted of: I reviewed the labs. CT angiography of the head and neck is reported as no evidence of high-grade stenosis or intracranial aneurysm. Review of Systems As per HPI. Past Medical History Additional Past Medical History / Comment(s): ovarian cysts, anxiety, migraine headches. History of Any Multi-Drug Resistant Organisms: None Reported Past Surgical History: Adenoidectomy, Cholecystectomy, Tonsillectomy, Tubal Ligation Additional Past Surgical History / Comment(s): lt fallopian tube removal Past Anesthesia/Blood Transfusion Reactions: No Reported Reaction Past Psychological History: Anxiety, Depression Smoking Status: Current every day smoker Past Alcohol Use History: None Reported Past Drug Use History: None Reported - Past Family History Mother Family Medical History: No Reported History Medications and Allergies Home Medications Medication Instructions Recorded Confirmed Type traZODone HCL [Desyrel] 100 mg PO HS 07/16/24 08/05/24 History Aspirin/Acetaminophen/Caffeine 1 - 2 tab PO DAILY PRN 08/05/24 08/05/24 History [Excedrin Extra Strength Caplet] Venlafaxine HCl [Effexor XR] 37.5 mg PO DIRECTED 08/05/24 08/05/24 History cloNIDine HCL [Catapres] 0.05 mg PO BID PRN 08/05/24 08/05/24 History Allergies Allergy/AdvReac Type Severity Reaction Status Date / Time latex Allergy Itching/carolina Verified 08/05/24 14:41 h morphine Allergy Nausea & Verified 08/05/24 14:41 Vomiting promethazine HCl Allergy Nausea & Verified 08/05/24 14:41 [From Phenergan] Vomiting sumatriptan [From Imitrex] AdvReac Rapid Verified 08/05/24 15:01 Heart Rate Physical Examination - Vital Signs Vital Signs: Vital Signs Temp Pulse Resp BP Pulse Ox 08/05/24 11:23 98.4 F 80 20 114/84 99 Intake and Output 08/05/24 08/05/24 08/05/24 06:59 14:59 22:59 Other: Weight 48.988 kg GENERAL: The patient is lying in bed and is not in acute distress. NEUROLOGICAL: Higher mental function: The patient is awake, alert, oriented to self, place and time. Patient is following commands. No aphasia and no neglect. Cranial nerves: The pupils are round, equal and reactive to light and accommodation. Visual villanueva are full to confrontation throughout. Extraocular movement is intact no nystagmus is noted. Facial sensation is normal to touch throughout. The facial strength is normal throughout. Hearing is normal bilaterally to hand rub. Tongue is midline and moved [id number] without any difficulty. No dysarthria is noted. Shoulder shrug is normal bilaterally. Motor: The strength is 5 over 5 throughout. Normal tone and bulk. Cerebellum: Normal finger to nose heel to pappas bilaterally. Sensation: Sensation is normal to touch throughout. Plantars are downgoing bilaterally. Results - Laboratory Findings CBC and BMP: 08/05/24 16:04 08/05/24 16:04 Abnormal Lab Findings: Abnormal Labs 08/05/24 08/05/24 16:04 16:04 WBC 12.0 H Neutrophils # 10.8 H Lymphocytes # 0.9 L Sodium 133 L Chloride 110 H Carbon Dioxide 15 L Glucose 183 H Assessment and Plan Assessment: This is a 44-year-old woman with migraine symptoms for the last 3 weeks and she feels it is occurring every 3 days. Intractable migraine History of Partial hysterectomy One prior episode of syncope and her PCP was concerned about POTS syndrome Underlying history of PTSD History of anxiety Tobacco use Plan: Patient was adamant to pursue with MRI of the brain. Did not tolerate sumatriptan in the past. I started the patient on amitriptyline which can with weight gain as well helps with depression and the patient was in agreement. Was notified of the side effect of amitriptyline. I ordered an as well as EKG to rule out any arrhythmia. Recommend Nurtec as needed for her migraine but does not seems we have it as formulary. Ordered routine EEG for her episode of facial twitching and prior syncope. Patient was counseled on tobacco cessation. Will defer the rest of medical management to primary and other specialist. Recommend the patient to follow-up with neurologist as outpatient. The plan is discussed with patient and primary team. Thank you for the consultation. Time with Patient: Greater than 30
[2024-08-05] MEDS ORDERED: ASPIRIN-ACET-CAFF 250-250-65MG 1 EACH TAB PO PRN (17:38)
--- NOTE | 2024-08-05 17:41 | P.HPIM ---
History of Present Illness H&P Date: 08/05/24 44 year old F with PMH of PTSD and Anxiety presents to the ED for headaches. Ongoing for the past 3 weeks, more recently started 2 days ago. Bitemporal L > R associated with photophobia and hyperacusis. Also with nausea but no vomiting. This prompted her to come to the ED. Recently prescribed Effexor and Clonidine but has not had the chance to start medication. In the ED she underwent extensive evaluation. BP 114/84, HR 80, T 98.4F, RR 20, 99% on RA. CBC, CMP significant for WBC 12, Na 133, Cl 110, bicarb 15, glu 183. CTA head and neck negative. CT brain previous ER visit negative. Given 1L NS bolus, 1g Mag sulfate, 15 mg Toradol, 1 mg Dilaudid, 10 mg IV Decadron and Tylenol with minimal relief. Admitted for neurology evaluation. General: non toxic, no distress, appears at stated age Derm: warm, dry Head: atraumatic, normocephalic, symmetric Eyes: EOMI, no lid lag, anicteric sclera Mouth: no lip lesion, mucus membranes moist Cardiovascular: good distal perfusion in all 4 extremities Lungs: breathing comfortably, no accessory muscle use Ext: no gross muscle atrophy, no edema, no contractures Neuro: no focal neuro deficits Psych: Alert, oriented, appropriate affect Based on my assessment of this patient, this patient meets a high complexity level of care. Migraine headache: Discussed with Dr. Covarrubias, start Elavil 25 mg PO QHS. Neurology recommends EKG, EEG and MRI brain. Leukocytosis: Likely reactive. No signs of active infection. Monitor fever profile. Hyponatremia: NS at 130 cc/hr. HyperCl met acidosis: Repeat BMP in the AM. Hyperglycemia: Check A1c CODE STATUS: FULL CODE DVT Prophylaxis: Heparin SQ GI Prophylaxis: Designated medical POA if patient is not able to make medical decisions for themselves: I have reviewed the following artist consultant notes: ED note, Neurology. I have reviewed the results of the following tests: As above. I have ordered the following tests: CBC, BMP, A1c in the AM. I have discussed the care of this patient with the following independent historian: I have independently interpreted the following test below: I have discussed the management of this patient with the following physician: Dr. Covarrubias, ER provider. Past Medical History Additional Past Medical History / Comment(s): ovarian cysts, anxiety, migraine headches. History of Any Multi-Drug Resistant Organisms: None Reported Past Surgical History: Adenoidectomy, Cholecystectomy, Tonsillectomy, Tubal Ligation Additional Past Surgical History / Comment(s): lt fallopian tube removal Past Anesthesia/Blood Transfusion Reactions: No Reported Reaction Past Psychological History: Anxiety, Depression Smoking Status: Current every day smoker Past Alcohol Use History: None Reported Past Drug Use History: None Reported - Past Family History Mother Family Medical History: No Reported History Medications and Allergies Home Medications Medication Instructions Recorded Confirmed Type traZODone HCL [Desyrel] 100 mg PO HS 07/16/24 08/05/24 History Aspirin/Acetaminophen/Caffeine 1 - 2 tab PO DAILY PRN 08/05/24 08/05/24 History [Excedrin Extra Strength Caplet] Venlafaxine HCl [Effexor XR] 37.5 mg PO DIRECTED 08/05/24 08/05/24 History cloNIDine HCL [Catapres] 0.05 mg PO BID PRN 08/05/24 08/05/24 History Allergies Allergy/AdvReac Type Severity Reaction Status Date / Time latex Allergy Itching/carolina Verified 08/05/24 14:41 h morphine Allergy Nausea & Verified 08/05/24 14:41 Vomiting promethazine HCl Allergy Nausea & Verified 08/05/24 14:41 [From Phenergan] Vomiting sumatriptan [From Imitrex] AdvReac Rapid Verified 08/05/24 15:01 Heart Rate Physical Exam Vitals: Vital Signs Temp Pulse Resp BP Pulse Ox 08/05/24 11:23 98.4 F 80 20 114/84 99 Intake and Output 08/05/24 08/05/24 08/05/24 06:59 14:59 22:59 Other: Weight 48.988 kg Results CBC & Chem 7: 08/05/24 16:04 08/05/24 16:04 Labs: Abnormal Lab Results - Last 24 Hours (Table) 08/05/24 08/05/24 Range/Units 16:04 16:04 WBC 12.0 H (3.8-10.6) k/uL Neutrophils # 10.8 H (1.3-7.7) k/uL Lymphocytes # 0.9 L (1.0-4.8) k/uL Sodium 133 L (137-145) mmol/L Chloride 110 H (98-107) mmol/L Carbon Dioxide 15 L (22-30) mmol/L Glucose 183 H (74-99) mg/dL
[2024-08-05] MEDS: HYDROmorphone 0.5 MG/0.5 ML SYRINGE IVP PRN (20:08)
[2024-08-05] MEDS: AMITRIPTYLINE HCL 25 MG TAB PO SCH (21:28)
[2024-08-05] MEDS: traZODone HCL 100 MG TAB PO SCH (23:13)
[2024-08-05] MEDS: HEPARIN SODIUM,PORCINE 5,000 UNIT/ML 1 ML VIAL SQ SCH (23:14)
[2024-08-06 08:58] LABS: ALT 6 U/L (8-44); AST 12 U/L (13-35); Albumin 3.9 g/dL (3.8-4.9); Albumin/Globulin Ratio 2.44 Ratio (1.60-3.17); Alkaline Phosphatase 35 U/L (41-126); Blood Urea Nitrogen 10.7 mg/dL (9.0-27.0); Calcium 8.5 mg/dL (8.7-10.3); Chloride 109 mmol/L (96-109); Globulin 1.6 g/dL (1.6-3.3); Glucose 105 mg/dL (70-110); Potassium 4.1 mmol/L (3.5-5.5); Sodium 138 mmol/L (135-145); Total Bilirubin 0.2 mg/dL (0.3-1.2); Total Protein 5.5 g/dL (6.2-8.2)
[2024-08-06 10:24] LABS: Basophils # (A) 0.04 X 10*3/uL (0.00-0.10); Basophils % (A) 0.4 %; Eosinophils # (A) 0.05 X 10*3/uL (0.04-0.35); Eosinophils % (A) 0.5 %; HCT 32.8 % (37.2-46.3); Lymphocytes # (A) 2.05 X 10*3/uL (0.90-5.00); Lymphocytes % (A) 18.6 %; MCH 30.8 pg (27.0-32.0); MCHC 33.5 g/dL (32.0-37.0); MCV 91.9 FL (80.0-97.0); Mean Platelet Volume 10.8 FL (9.5-12.2); Monocytes % (A) 7.3 %; NRBC Per 100 WBC 0 X 10*3/uL (0.00-0.01); Neutrophils # (A) 8.03 X 10*3/uL (1.80-7.70); Neutrophils % (A) 72.9 %; Platelet Count 204 X 10*3/uL (140-440); RBC 3.57 X 10*6/uL (4.10-5.20); RDW 12.4 % (11.5-14.5)
[2024-08-06] MEDS: KETOROLAC 15 MG/ML 1 ML VIAL IVP PRN (10:34)
--- NOTE | 2024-08-06 11:34 | P.PN ---
Subjective Progress Note Date: 08/06/24 44 year old F with PMH of PTSD and Anxiety presents to the ED for headaches. Ongoing for the past 3 weeks, more recently started 2 days ago. Bitemporal L > R associated with photophobia and hyperacusis. Also with nausea but no vomiting. This prompted her to come to the ED. Recently prescribed Effexor and Clonidine but has not had the chance to start medication. In the ED she underwent extensive evaluation. BP 114/84, HR 80, T 98.4F, RR 20, 99% on RA. CBC, CMP significant for WBC 12, Na 133, Cl 110, bicarb 15, glu 183. CTA head and neck negative. CT brain previous ER visit negative. Given 1L NS bolus, 1g Mag sulfate, 15 mg Toradol, 1 mg Dilaudid, 10 mg IV Decadron and Tylenol with minimal relief. Admitted for neurology evaluation. Neurology consulted, EEG and MRI brain ordered. Trial of Elavil started. 08/06 Patient was seen and examined. Continued headache, started behind the ear and moves towards the temporal region. EKG shows sinus rhythm with sinus arrhythmia. CBC, BMP significant for WBC 11, RBC 3.57, Hg 11, Hct 32.8, bicarb 20, Cr 0.5, Ca 8.5, T. Bili 0.2, AST 12, ALT 6, alk phos 35, total protein 5.5. A1c 5.6. General: non toxic, no distress, appears at stated age Derm: warm, dry Head: atraumatic, normocephalic, symmetric Eyes: EOMI, no lid lag, anicteric sclera Mouth: no lip lesion, mucus membranes moist Cardiovascular: Normal S1 S2. No murmurs Lungs: CTA bilaterally, no accessory muscle use Ext: no gross muscle atrophy, no edema, no contractures Neuro: no focal neuro deficits Psych: Alert, oriented, appropriate affect Based on my assessment of this patient, this patient meets a high complexity level of care. Migraine headache: Concern for cervicogenic headache. Continue Elavil 25 mg PO QHS. DC Dilaudid and start Toradol 15 mg IV Q6 PRN. Consult pain management for possible cervical block. EEG and MRI brain pending. Discussed with Dr. Covarrubias. Leukocytosis: Likely reactive. No signs of active infection. Monitor fever profile. Met acidosis: Repeat BMP in the AM. Resolved: Hyperglycemia, Hyponatremia CODE STATUS: FULL CODE DVT Prophylaxis: SCD GI Prophylaxis: Designated medical POA if patient is not able to make medical decisions for themselves: I have reviewed the following mental hygiene consultant notes: Neurology. I have reviewed the results of the following tests: As above. I have ordered the following tests: I have discussed the care of this patient with the following independent historian: RN. I have independently interpreted the following test below: I have discussed the management of this patient with the following physician: Dr. Covarrubias Objective - Vital Signs Vital signs: Vital Signs Temp 98.1 F 08/06/24 07:43 Pulse 66 08/06/24 07:43 Resp 16 08/06/24 07:43 BP 106/60 08/06/24 07:43 Pulse Ox 98 08/06/24 07:43 FiO2 Intake & Output 08/05/24 08/06/24 08/06/24 18:59 06:59 18:59 Intake Total 118 Balance 118 Weight 48.988 kg 48.988 kg Intake: Oral 118 Other: # Voids 2 - Labs CBC & Chem 7: 08/06/24 05:05 08/06/24 05:05 Labs: Abnormal Lab Results - Last 24 Hours (Table) 08/05/24 08/05/24 08/06/24 Range/Units 16:04 16:04 05:05 WBC 12.0 H 11.00 H (3.8-10.6) k/uL RBC 3.57 L (4.10-5.20) X 10*6/uL Hgb 11.0 L (12.0-15.0) g/dL Hct 32.8 L (37.2-46.3) % Neutrophils # 10.8 H 8.03 H (1.3-7.7) k/uL Lymphocytes # 0.9 L (1.0-4.8) k/uL Sodium 133 L (137-145) mmol/L Chloride 110 H (98-107) mmol/L Carbon Dioxide 15 L (22-30) mmol/L Creatinine (0.6-1.5) mg/dL BUN/Creatinine Ratio (12.00-20.00) Ratio Glucose 183 H (74-99) mg/dL Calcium (8.7-10.3) mg/dL Total Bilirubin (0.3-1.2) mg/dL AST (13-35) U/L ALT (8-44) U/L Alkaline Phosphatase (41-126) U/L Total Protein (6.2-8.2) g/dL 08/06/24 Range/Units 05:05 WBC (3.8-10.6) k/uL RBC (4.10-5.20) X 10*6/uL Hgb (12.0-15.0) g/dL Hct (37.2-46.3) % Neutrophils # (1.3-7.7) k/uL Lymphocytes # (1.0-4.8) k/uL Sodium (137-145) mmol/L Chloride (98-107) mmol/L Carbon Dioxide 20.0 L (22-30) mmol/L Creatinine 0.5 L (0.6-1.5) mg/dL BUN/Creatinine Ratio 21.40 H (12.00-20.00) Ratio Glucose (74-99) mg/dL Calcium 8.5 L (8.7-10.3) mg/dL Total Bilirubin 0.2 L (0.3-1.2) mg/dL AST 12 L (13-35) U/L ALT 6 L (8-44) U/L Alkaline Phosphatase 35 L (41-126) U/L Total Protein 5.5 L (6.2-8.2) g/dL
[2024-08-06 12:07] VITALS: PULSE 72
--- NOTE | 2024-08-06 13:22 | MR ---
EXAMINATION TYPE: MR brain wo/w con DATE OF EXAM: 08/06/2024 1:15 PM COMPARISON: None. CLINICAL INDICATION: Female, 44 years old with history of headache that is intractable, Intractable h eadache. TECHNIQUE: Multiplanar and multispin-echo imaging of the brain was performed both before and after th e administration of contrast. CONTRAST: Patient received 5 mL intravenous Gadobutrol gadolinium contrast. FINDINGS: The ventricles, basal cisterns and sulci overlying the cerebral convexities are within normal limits. There is no evidence for midline shift or mass effect. Acute intracranial hemorrhage or extra-axial collection is not evident. There are no abnormal areas of increased or decreased signal intensity within the brain parenchyma. Following contrast administration, there is no evidence for pathologic enhancement or enhancing mass. The paranasal sinuses and mastoid air cells are well-aerated. IMPRESSION: Unremarkable pre and postcontrast enhanced MRI of the brain. [facility], , 08/06/2024 1:19 PM
[2024-08-06] MEDS: BUTALB/APAP/CAFF 50-325-40MG TAB PO PRN (13:39)
[2024-08-06] MEDS: cloNIDine HCL 0.1 MG TAB PO PRN (13:39)
[2024-08-06] MEDS: GABAPENTIN 100 MG CAP PO SCH (13:54)
[2024-08-06 14:08] VITALS: BP 111/73; RESP 16; TEMP 99.7
--- NOTE | 2024-08-06 15:21 | P.DS ---
Providers Date of admission: 08/05/24 13:37 Expected date of discharge: 08/06/24 Attending physician: Libia Caraballo MD Consults: 08/05/24 14:10 Consult Physician Routine Consulting Provider: Kannan Covarrubias Consult Reason/Comments: intractable headache Do you want consulting provider notified?: Yes, Notify in am Primary care physician: [facility] Course: 44 year old F with PMH of PTSD and Anxiety presents to the ED for headaches. Ongoing for the past 3 weeks, more recently started 2 days ago. Bitemporal L > R associated with photophobia and hyperacusis. Also with nausea but no vomiting. This prompted her to come to the ED. Recently prescribed Effexor and Clonidine but has not had the chance to start medication. In the ED she underwent exte nsive evaluation. BP 114/84, HR 80, T 98.4F, RR 20, 99% on RA. CBC, CMP significant for WBC 12, Na 133, Cl 110, bicarb 15, glu 183. CTA head and neck negative. CT brain previous ER visit negative. Given 1L NS bolus, 1g Mag sulfate, 15 mg Toradol, 1 mg Dilaudid, 10 mg IV Decadron and Tylenol with minimal relief. Admitted for neurology evaluation. Neurology consulted, EEG and MRI brain obtained and negative. 08/06 Patient was seen and examined. Continued headache, started behind the ear and moves towards the temporal region. EKG shows sinus rhythm with sinus arrhythmia. CBC, BMP significant for WBC 11, RBC 3.57, Hg 11, Hct 32.8, bicarb 20, Cr 0.5, Ca 8.5, T. Bili 0.2, AST 12, ALT 6, alk phos 35, total protein 5.5. A1c 5.6. Pain management consulted for possible cervicogenic headache. She does have a previous MRI showing C5-6 disc bulging. Pain management started Fioricet PRN and Gabapentin. Patient advised to continue these medications for atleast a week to see for improvement. She may benefit from occipital nerve block for which she can follow up with Dr. Wesley. Follow up with Dr. Mario as a last resort to explore surgical options for findings on cervical MRI. Patient verbalized understanding of the plan. General: non toxic, no distress, appears at stated age Derm: warm, dry Head: atraumatic, normocephalic, symmetric Eyes: EOMI, no lid lag, anicteric sclera Mouth: no lip lesion, mucus membranes moist Cardiovascular: Normal S1 S2. No murmurs Lungs: CTA bilaterally, no accessory muscle use Ext: no gross muscle atrophy, no edema, no contractures Neuro: no focal neuro deficits Psych: Alert, oriented, appropriate affect Discharge Diagnosis: Migraine headache: Concern for cervicogenic headache. Leukocytosis Met acidosis Resolved: Hyperglycemia, Hyponatremia This complex discharge took 35 minutes to complete. Patient Condition at Discharge: Stable Plan - Discharge Summary New Discharge Prescriptions: New Butalb/APAP/Caff 50-325-40Mg [Fioricet 50-325-40] 1 each PO Q4HR PRN #30 tab PRN Reason: Headache Gabapentin [Neurontin] 200 mg PO BID #120 cap Acetaminophen Tab [Tylenol] 650 mg PO Q6HR PRN tab PRN Reason: Mild Pain Or Fever > 100.5 ALPRAZolam [Xanax] 1 mg PO Q8H PRN 3 Days #9 tab PRN Reason: Anxiety Ondansetron Odt [Zofran Odt] 4 mg PO Q12HR PRN #14 tab PRN Reason: Nausea And Vomiting Continue Venlafaxine HCl [Effexor XR] 37.5 mg PO DIRECTED cloNIDine HCL [Catapres] 0.05 mg PO BID PRN PRN Reason: Anxiety traZODone HCL [Desyrel] 100 mg PO HS Discontinued Aspirin/Acetaminophen/Caffeine [Excedrin Extra Strength Caplet] 1 - 2 tab PO DAILY PRN PRN Reason: Migraine Headache Discharge Medication List traZODone HCL [Desyrel] 100 mg PO HS 07/16/24 [History] Venlafaxine HCl [Effexor XR] 37.5 mg PO DIRECTED 08/05/24 [History] cloNIDine HCL [Catapres] 0.05 mg PO BID PRN 08/05/24 [History] ALPRAZolam [Xanax] 1 mg PO Q8H PRN 3 Days #9 tab 08/06/24 [Rx] Acetaminophen Tab [Tylenol] 650 mg PO Q6HR PRN tab 08/06/24 [Rx] Butalb/APAP/Caff 50-325-40Mg [Fioricet 50-325-40] 1 each PO Q4HR PRN #30 tab 08/06/24 [Rx] Gabapentin [Neurontin] 200 mg PO BID #120 cap 08/06/24 [Rx] Ondansetron Odt [Zofran Odt] 4 mg PO Q12HR PRN #14 tab 08/06/24 [Rx] Follow up Appointment(s)/Referral(s): Bere Alford MD [REFERRING] - 1 Week Diego Wesley MD [STAFF PHYSICIAN] - 1 Week Ernesto Mario DO [Doctor of Osteopathic Medicine] - 1 Week Ronni Malone DO [STAFF PHYSICIAN] - 1 Week Discharge Disposition: HOME SELF-CARE
--- NOTE | 2024-08-06 21:08 | P.PAINCN ---
History of Present Illness - Reason for Consult Consult date: 08/06/24 - History of Present Illness This is 44 years old female, admitted to [facility] secondary to severe headache started 3 weeks ago patient reported that the headache localized in the temporal area bilaterally radiation towards the periorbital area, headache associated with photophobia and also associated with nausea and vomiting, patient denies any initiating event, she denies any focal neurological deficit patient was treated for the headache with sumatriptan and she had side effects from it and she is currently on Excedrin Migraine, and amitriptyline 25 mg nightly, Toradol 15 mg every 6 hours as needed, Tylenol 650 every 6 hours as needed, patient reported the current medication is not helping to control her the headache, she denies any focal neurological deficits she denies any visual problem, Past Medical History Additional Past Medical History / Comment(s): ovarian cysts, anxiety, migraine headches. patient states she isn't sure if she has dysautonomia. History of Any Multi-Drug Resistant Organisms: None Reported Past Surgical History: Adenoidectomy, Cholecystectomy, Tonsillectomy, Tubal Ligation Additional Past Surgical History / Comment(s): lt fallopian tube removal, patient also states she's had a partial hysterectomy. Past Anesthesia/Blood Transfusion Reactions: No Reported Reaction Past Psychological History: Anxiety, Depression Smoking Status: Current every day smoker Past Alcohol Use History: None Reported Additional Past Alcohol Use History / Comment(s): SMOKES 1 PPD SINCE AGE 18 Past Drug Use History: None Reported - Past Family History Mother Family Medical History: No Reported History Medications and Allergies Home Medications Medication Instructions Recorded Confirmed Type traZODone HCL [Desyrel] 100 mg PO HS 07/16/24 08/05/24 History Venlafaxine HCl [Effexor XR] 37.5 mg PO DIRECTED 08/05/24 08/05/24 History cloNIDine HCL [Catapres] 0.05 mg PO BID PRN 08/05/24 08/05/24 History ALPRAZolam [Xanax] 1 mg PO Q8H PRN 3 Days #9 tab 08/06/24 Rx Acetaminophen Tab [Tylenol] 650 mg PO Q6HR PRN tab 08/06/24 Rx Butalb/APAP/Caff 50-325-40Mg 1 each PO Q4HR PRN #30 tab 08/06/24 Rx [Fioricet 50-325-40] Gabapentin [Neurontin] 200 mg PO BID #120 cap 08/06/24 Rx Ondansetron Odt [Zofran Odt] 4 mg PO Q12HR PRN #14 tab 08/06/24 Rx Allergies Allergy/AdvReac Type Severity Reaction Status Date / Time latex Allergy Itching/carolina Verified 08/05/24 14:41 h morphine Allergy Nausea & Verified 08/05/24 14:41 Vomiting promethazine HCl Allergy Nausea & Verified 08/05/24 14:41 [From Phenergan] Vomiting sumatriptan [From Imitrex] AdvReac Rapid Verified 08/05/24 15:01 Heart Rate Physical Exam Vitals: Vital Signs Temp Pulse Pulse Resp BP BP Pulse Ox 08/06/24 13:25 99.7 F H 72 16 111/73 99 08/06/24 12:05 97.9 F 72 17 110/62 98 08/06/24 07:43 98.1 F 66 16 106/60 98 08/06/24 06:50 98.2 F 82 15 107/65 98 08/06/24 01:47 98.1 F 74 17 106/64 96 08/05/24 20:58 97.6 F 66 18 109/68 98 08/05/24 18:47 79 16 108/63 96 Intake and Output 08/05/24 08/06/24 08/06/24 22:59 06:59 14:59 Intake Total 476 Balance 476 Intake: Oral 476 Other: # Voids 2 2 2 Weight 48.988 kg Physical Examinations : -Constitutiona : Cooperative , not in acute distress . Anxious, alert oriented x 3 -HEENT : nech : supple , no Lymphadenopathy , normal thyroid size . : eyes : no ptosis , no icterus, no photophobia . - neurologic : Cranial nerve II to XII intact , no focal ne urological deffecit . -psychatric : alert , oriented X 3 , appropriate affect , intact judgment and insight . -Lymphatic : no Lymphadenopathy . - musculoskeltal : Cervical Spine motor stregnth in the deltoid and biceps, normal right side , normal Left side motor stregnth biceps and the wrist extensors normal right side ,normal left side . motor stregnth in the triceps muscle . normal Right side , normal Left side . Lumber spine moter stegnth lower extremities ,thigh and legs 5/5 Right side , 5/5 Left side Results CBC & Chem 7: 08/06/24 05:05 08/06/24 05:05 Labs: Abnormal Lab Results - Last 24 Hours (Table) 08/05/24 08/05/24 08/06/24 Range/Units 16:04 16:04 05:05 WBC 12.0 H 11.00 H (3.8-10.6) k/uL RBC 3.57 L (4.10-5.20) X 10*6/uL Hgb 11.0 L (12.0-15.0) g/dL Hct 32.8 L (37.2-46.3) % Neutrophils # 10.8 H 8.03 H (1.3-7.7) k/uL Lymphocytes # 0.9 L (1.0-4.8) k/uL Sodium 133 L (137-145) mmol/L Chloride 110 H (98-107) mmol/L Carbon Dioxide 15 L (22-30) mmol/L Creatinine (0.6-1.5) mg/dL BUN/Creatinine Ratio (12.00-20.00) Ratio Glucose 183 H (74-99) mg/dL Calcium (8.7-10.3) mg/dL Total Bilirubin (0.3-1.2) mg/dL AST (13-35) U/L ALT (8-44) U/L Alkaline Phosphatase (41-126) U/L Total Protein (6.2-8.2) g/dL 08/06/24 Range/Units 05:05 WBC (3.8-10.6) k/uL RBC (4.10-5.20) X 10*6/uL Hgb (12.0-15.0) g/dL Hct (37.2-46.3) % Neutrophils # (1.3-7.7) k/uL Lymphocytes # (1.0-4.8) k/uL Sodium (137-145) mmol/L Chloride (98-107) mmol/L Carbon Dioxide 20.0 L (22-30) mmol/L Creatinine 0.5 L (0.6-1.5) mg/dL BUN/Creatinine Ratio 21.40 H (12.00-20.00) Ratio Glucose (74-99) mg/dL Calcium 8.5 L (8.7-10.3) mg/dL Total Bilirubin 0.2 L (0.3-1.2) mg/dL AST 12 L (13-35) U/L ALT 6 L (8-44) U/L Alkaline Phosphatase 35 L (41-126) U/L Total Protein 5.5 L (6.2-8.2) g/dL Comments: The brain negative for abnormalities CT scan of the brain negative for abnormalities Assessment and Plan Plan: Assessment and plan= migraine headache Patient did not benefit from sumatriptan, current medication is not helping to control the headache, I recommend to start patient on Fioricet tablet p.o. every 6 hours, and also patient could benefit from Neurontin 200 mg twice a day Time with Patient: Less than 30 PQRS Measure Charge Sheet - Pain Location Head Non-Pharmacological Interventions: Darkened Room, Distraction, Environmental Control Pharmacological Interventions: Discuss Pain Med Options PQRS Narrative: Smoking Status Current every day smoker Blood Pressure [Left Arm] 111/73 Blood Pressure 109/68 Pain Intensity [Head] 6 Pain Intensity 8 Pain Scale Used Numeric (1 - 10) Scale Used Numeric (1 - 10) Home Medications: Ambulatory Orders traZODone HCL [Desyrel] 100 mg PO HS 07/16/24 Venlafaxine HCl [Effexor XR] 37.5 mg PO DIRECTED 08/05/24 cloNIDine HCL [Catapres] 0.05 mg PO BID PRN 08/05/24 ALPRAZolam [Xanax] 1 mg PO Q8H PRN 3 Days #9 tab 08/06/24 Acetaminophen Tab [Tylenol] 650 mg PO Q6HR PRN tab 08/06/24 Butalb/APAP/Caff 50-325-40Mg [Fioricet 50-325-40] 1 each PO Q4HR PRN #30 tab 08/06/24 Gabapentin [Neurontin] 200 mg PO BID #120 cap 08/06/24 Ondansetron Odt [Zofran Odt] 4 mg PO Q12HR PRN #14 tab 08/06/24
--- NOTE | 2024-08-07 02:54 | EEG ---
ELECTROENCEPHALOGRAM REPORT CLINICAL HISTORY: This is a 44-year-old woman with a syncopal episode. The video EEG is obtained to evaluate for seizure epileptiform activity. RELEVANT MEDICATION: Xanax. EEG TYPE: This is a routine 21-channel EEG with video using the 10/20 electrode placement system. DESCRIPTION: Wakefulness is only obtained. During awake state, the posterior-dominant rhythm consists of [id number] voltage of 9 to 10 hertz activity that is well modulated and well sustained. There is no physiological stage 2 sleep architecture. There is no focal slowing. Interictal and ictal is none. ACTIVATION PROCEDURE: Photic stimulation did not evoke a posterior driving response. There is no abnormality during the photic stimulation. Hyperventilation is not performed. CLINICAL INTERPRETATION: This is a normal routine EEG. There is no focal slowing, epileptiform discharge, or seizure on the EEG. A normal routine EEG does not rule out underlying epilepsy. Clinical correlation is recommended. MMJOSIE / IJSloan: [id number] /
== END 2024-08-06 15:57 | disposition home or self-care (01) ==
LOC: EC 11:22 → 6NMEDSUR 13:37
PROVIDERS: ADMIT Family Medicine; ATTEND Family Medicine
DX: G43.919 Migraine, unspecified, intractable, without status migrainosus (principal); D72.829 Elevated white blood cell count, unspecified; E87.1 Hypo-osmolality and hyponatremia; E87.20 Acidosis, unspecified; R73.9 Hyperglycemia, unspecified; F43.10 Post-traumatic stress disorder, unspecified; F41.9 Anxiety disorder, unspecified; F32.A Depression, unspecified; F17.210 Nicotine dependence, cigarettes, uncomplicated; Z53.29 Procedure and treatment not carried out because of patient's decision for other reasons; Z79.899 Other long term (current) drug therapy; Z79.82 Long term (current) use of aspirin; Z91.040 Latex allergy status; Z88.5 Allergy status to narcotic agent; Z91.09 Other allergy status, other than to drugs and biological substances; Z90.711 Acquired absence of uterus with remaining cervical stump
CPT/HCPCS: 96376 ×3; 96361 ×3; 96365; 96366; 96375; 99285; 95816; 93005; 80053 ×2; 85025 ×2; 83036; 70496; 70553; G0378 ×2; J1200; J1100; J2405; J1171 ×3; J3475; J1885 ×2; Q9967; A9585

== ENCOUNTER 2024-08-10 22:07 | Emergency (ER) | payer OTHER ==
[2024-08-10 22:14] VITALS: TEMP 98.5
--- NOTE | 2024-08-10 22:59 | ED ---
General Adult HPI - General Chief complaint: Headache Stated complaint: headache constipation Time Seen by Provider: 08/10/24 22:20 Source: patient Mode of arrival: ambulatory Limitations: no limitations - History of Present Illness Initial comments: Sadia is a 44-year-old female with extensive past medical history including chronic migraines recent admission for intractable headache. Patient returns today reporting that she has a persistent headache and her home meds have not worked. Patient states that headache is mostly frontal right sided more than left pressure-like and she reports feeling like her brain is imploding. Patient states that there is only 1 medication that works for her headaches and that is Dilaudid. Patient also notes that she has been constipated she states that she has not had a bowel movement in 6 days, she states that on the day of discharge from hospital she took for stool softeners and took an additional couple the next day, she also took some milk of magnesia. Patient saw her primary care physician earlier in the day today who encouraged her to do an enema so she reports she did a fleets enema at home but still did not have a bowel movement. Patient's not had any nausea or vomiting. - Related Data Home Medications Medication Instructions Recorded Confirmed traZODone HCL [Desyrel] 100 mg PO HS 07/16/24 08/05/24 Venlafaxine HCl [Effexor XR] 37.5 mg PO DIRECTED 08/05/24 08/05/24 cloNIDine HCL [Catapres] 0.05 mg PO BID PRN 08/05/24 08/05/24 Previous Rx's Medication Instructions Recorded ALPRAZolam [Xanax] 1 mg PO Q8H PRN 3 Days #9 tab 08/06/24 Acetaminophen Tab [Tylenol] 650 mg PO Q6HR PRN tab 08/06/24 Butalb/APAP/Caff 50-325-40Mg 1 each PO Q4HR PRN #30 tab 08/06/24 [Fioricet 50-325-40] Gabapentin [Neurontin] 200 mg PO BID #120 cap 08/06/24 Ondansetron Odt [Zofran Odt] 4 mg PO Q12HR PRN #14 tab 08/06/24 Allergies Allergy/AdvReac Type Severity Reaction Status Date / Time latex Allergy Itching/carolina Verified 08/05/24 14:41 h morphine Allergy Nausea & Verified 08/05/24 14:41 Vomiting promethazine HCl Allergy Nausea & Verified 08/05/24 14:41 [From Phenergan] Vomiting sumatriptan [From Imitrex] AdvReac Rapid Verified 08/05/24 15:01 Heart Rate Review of Systems ROS Statement: Those systems with pertinent positive or pertinent negative responses have been documented in the HPI. ROS Other: All systems not noted in ROS Statement are negative. Past Medical History Additional Past Medical History / Comment(s): ovarian cysts, anxiety, migraine headches. patient states she isn't sure if she has dysautonomia. History of Any Multi-Drug Resistant Organisms: None Reported Past Surgical History: Adenoidectomy, Cholecystectomy, Tonsillectomy, Tubal Ligation Additional Past Surgical History / Comment(s): lt fallopian tube removal, patient also states she's had a partial hysterectomy. Past Anesthesia/Blood Transfusion Reactions: No Reported Reaction Past Psychological History: Anxiety, Depression Smoking Status: Current every day smoker Past Alcohol Use History: None Reported Past Drug Use History: None Reported - Past Family History Mother Family Medical History: No Reported History General Exam - General Exam Comments Initial Comments: Physical Exam GENERAL: Patient is well-developed and well-nourished Patient is nontoxic and well-hydrated Patient is sitting comfortably with her sunglasses on HENT: Normocephalic, Atraumatic No tenderness to percussion of frontal or maxillary sinuses EYES: PERRL, EOMI PULMONARY: Unlabored respirations CARDIOVASCULAR: Warm and well perfused extremities ABDOMEN: Non-distended SKIN: No rashes or bruising : Deferred NEUROLOGIC: Alert and oriented Normal speech Normal gait No nuchal rigidity MUSCULOSKELETAL: Moving all extremities with no apparent injury Limitations: no limitations Course Vital Signs 08/10/24 08/11/24 22:10 01:09 Temperature 98.5 F Pulse Rate 88 57 L Respiratory 16 18 Rate Blood Pressure 122/85 102/71 O2 Sat by Pulse 95 99 Oximetry Medical Decision Making - Medical Decision Making Was pt. sent in by a medical professional or institution (, PA, INSPECTOR AIDE, urgent care, hospital, or detention...) When possible be specific @ -No Did you speak to anyone other than the patient for history (EMS, parent, family, police, friend...)? What history was obtained from this source @ -No Did you review nursing and triage notes (agree or disagree)? Why? @ -I reviewed and agree with nursing and triage notes Were old charts reviewed (outside hosp., previous admission, EMS record, old EKG, old radiological studies, urgent care reports/EKG's, detention records)? Report findings @ -Previous admission neurology consult notes and results were reviewed Differential Diagnosis (chest pain, altered mental status, abdominal pain women, abdominal pain men, vaginal bleeding, weakness, fever, dyspnea, syncope, headache, dizziness, GI bleed, back pain, seizure, CVA, palpatations, mental health)? @ -Differential Headache: Migraine, tension, cluster, carbon monoxide, central venous thrombosis, pension karma temporal arteritis, acute closure glaucoma, intercranial hemorrhage, mastoiditis, sinusitis, head injury, this is not meant to be an all-inclusive list. EKG interpreted by me (3pts min.). @ -As above X-rays interpreted by me (1pt min.). @ -X-ray of the abdomen with no signs of bowel obstruction no significant stool burden CT interpreted by me (1pt min.). @ -None done U/S interpreted by me (1pt. min.). @ -None done What testing was considered but not performed or refused? (CT, X-rays, U/S, labs)? Why? @ -None What meds were considered but not given or refused? Why? @ -None Did you discuss the management of the patient with other professionals (professionals i.e. , PA, INSPECTOR AIDE, lab, RT, psych nurse, foster care social worker, making machine operator, teacher, giving officer, pillowcase turner)? Give summary @ -No Was smoking cessation discussed for >3mins.? @ -No Was critical care preformed (if so, how long)? @ -No Were there social determinants of health that impacted care today? How? (Homelessness, low income, unemployed, alcoholism, drug addiction, transportation, low edu. Level, literacy, decrease access to med. care, usp, rehab)? @ -No Was there de-escalation of care discussed even if they declined (Discuss DNR or withdrawal of care, Hospice)? DNR status @ -No What co-morbidities impacted this encounter? (DM, HTN, Smoking, COPD, CAD, Cancer, CVA, ARF, Chemo, Hep., AIDS, mental health diagnosis, sleep apnea, morbid obesity)? @ -Mental health diagnosis Was patient admitted / discharged? Hospital course, mention meds given and route, prescriptions, significant lab abnormalities, going to OR and other pertinent info. @ -Discharged The patient was seen and evaluated history is obtained from the patient. Patient presenting with acute on chronic headache not responsive to her home medications in addition patient reports constipation for 6 days despite aggressive home therapy. X-ray of the abdomen was obtained and there is no significant stool burden or signs of obstruction. Patient stated that only Dilaudid works for her headaches and I advised that I do not feel its appropriate treatment for chronic headaches as Dilaudid can cause rebound headac hes. I will offer a migraine cocktail with Reglan Benadryl and Toradol. Patient does not want steroids due to adverse reaction to steroids in the past. Patient was given the migraine cocktail as well as IV fluids. The patient's room to reevaluate after medications were administered. Noted that the nurse had turned on the lights and the patient had chosen to turn on the flashlight on her phone, she was sleeping comfortably snoring. Decided to allow her additional time to rest as she appeared quite comfortable. I returned to the patient's room approximately 30 to 45 minutes later and again she was in the same condition snoring appeared quite comfortable the flashlight remained on on her phone. I did wake the patient and discussed with her that her x-ray did not show any significant constipation or signs of obstruction I recommended continue supportive care hydration. She seemed to be much more comfortable able to sleep despite her previous headache therefore we will allow her to be discharged home to rest and she can follow-up with her primary care or neurology as planned or pain management with whom she has been referred to for possible injections. Note to the patient and advise her that neurology did advise considering starting amitriptyline for treatment of her headaches and this was not started during previous hospitalization this may be due to possible interactions with the other medication she is on but it is something she can discuss with her primary care. When the nurse attempted to discharge the patient she became quite agitated that she had not received any pain medications states that she received Dilaudid during previous visits and she should receive it today. Patient was given the opportunity to talk to nursing cell operation supervisor and was subsequently discharged home. Undiagnosed new problem with uncertain prognosis? @ -No Drug Therapy requiring intensive monitoring for toxicity (Heparin, Nitro, Insulin, Cardizem)? @ -No Were any procedures done? @ -No Diagnosis/symptom? @ -Chronic headaches Acute, or Chronic, or Acute on Chronic? @ -Acute on chronic Uncomplicated (without systemic symptoms) or Complicated (systemic symptoms)? @ -Default Side effects of treatment? @ -No Exacerbation, Progression, or Severe Exacerbation? @ -No Poses a threat to life or bodily function? How? (Chest pain, USA, OR, pneumonia, PE, COPD, DKA, ARF, appy, cholecystitis, CVA, Diverticulitis, Homicidal, Suicidal, threat to staff... and all critical care pts) @ -No Disposition Clinical Impression: Migraine, Constipation, Drug-seeking behavior Disposition: HOME SELF-CARE Condition: Stable Additional Instructions: Follow up with your regular doctor to discuss whether amitriptyline would be a reasonable treatment plan for your headaches, this was recommended by the neurologist during her previous hospitalization Is patient prescribed a controlled substance at d/c from ED?: No Referrals: Dima Winkler MD [Primary Care Provider] - 1-2 days
[2024-08-10] MEDS: METOCLOPRAMIDE 5 MG/ML 2 ML VIAL IVP STA (23:15)
[2024-08-10] MEDS: KETOROLAC 15 MG/ML 1 ML VIAL IVP STA (23:15)
[2024-08-10] MEDS: diphenhydrAMINE 50 MG/ML 1 ML VIAL IVP STA (23:15)
--- NOTE | 2024-08-10 23:18 | XR ---
EXAMINATION TYPE: XR abdomen 1V DATE OF EXAM: 08/10/2024 11:09 PM CLINICAL HISTORY: Constipation. No bowel movement for 6 days. TECHNIQUE: Single upright KUB image of the abdomen is obtained. COMPARISON: Prior abdominal x-ray 2011. FINDINGS: Scattered gas is seen in non-distended small bowel loops. Gas and fecal material is seen in non-distended colon. No significant colonic fecal prominence. Scoliotic curvature or positioning is seen. Lung bases are clear. Left-sided tubal ligation clips are present. IMPRESSION: Overall nonobstructive bowel gas pattern. [facility], , 08/10/2024 11:16 PM
[2024-08-11 01:12] VITALS: BP 102/71; PULSE 57; RESP 18
== END 2024-08-11 01:14 | disposition home or self-care (01) ==
LOC: EC 22:07
DX: G43.909 Migraine, unspecified, not intractable, without status migrainosus (principal); K59.00 Constipation, unspecified; Z76.5 Malingerer [conscious simulation]; F17.200 Nicotine dependence, unspecified, uncomplicated; Z91.040 Latex allergy status; Z88.8 Allergy status to other drugs, medicaments and biological substances; Z88.5 Allergy status to narcotic agent
CPT/HCPCS: 74018; 99283; 96374; 96375 ×2; J1200; J2765; J1885

== ENCOUNTER 2024-09-21 17:20 | Emergency (ER) | payer OTHER ==
[2024-09-21 17:52] VITALS: RESP 18; TEMP 98.8
--- NOTE | 2024-09-21 18:15 | ED ---
Syncope HPI - General Chief Complaint: Syncope Stated Complaint: Sinus/Miggraine Time Seen by Provider: 09/21/24 17:54 Source: patient, RN notes reviewed, old records reviewed Mode of arrival: ambulatory Limitations: no limitations - History of Present Illness Initial Comments: This is a 42-year-old female to ER for evaluation of multiple complaints cough congestion runny nose occasional headaches migraine headache issues with near syncope presyncope. Patient has no medication changes, no recent neurological symptoms. Patient is just concerned that she is almost passing out with a history of this going on for months MD Complaint: almost passed out -: month(s) Prodromal Symptoms: headache (With recent CT scan), palpitations, heart racing -: second(s) Injuries Sustained Associated with Event: None Current Symptoms: lightheaded History: previous syncopal episode Context: at rest - Related Data Home Medications Medication Instructions Recorded Confirmed traZODone HCL [Desyrel] 100 mg PO HS 07/16/24 08/05/24 Venlafaxine HCl [Effexor XR] 37.5 mg PO DIRECTED 08/05/24 08/05/24 cloNIDine HCL [Catapres] 0.05 mg PO BID PRN 08/05/24 08/05/24 Previous Rx's Medication Instructions Recorded ALPRAZolam [Xanax] 1 mg PO Q8H PRN 3 Days #9 tab 08/06/24 Acetaminophen Tab [Tylenol] 650 mg PO Q6HR PRN tab 08/06/24 Butalb/APAP/Caff 50-325-40Mg 1 each PO Q4HR PRN #30 tab 08/06/24 [Fioricet 50-325-40] Gabapentin [Neurontin] 200 mg PO BID #120 cap 08/06/24 Ondansetron Odt [Zofran Odt] 4 mg PO Q12HR PRN #14 tab 08/06/24 Allergies Allergy/AdvReac Type Severity Reaction Status Date / Time latex Allergy Itching/carolina Verified 09/21/24 17:49 h morphine Allergy Nausea & Verified 09/21/24 17:49 Vomiting promethazine HCl Allergy Nausea & Verified 09/21/24 17:49 [From Phenergan] Vomiting sumatriptan [From Imitrex] AdvReac Rapid Verified 09/21/24 17:49 Heart Rate Review of Systems ROS Statement: Those systems with pertinent positive or pertinent negative responses have been documented in the HPI. ROS Other: All systems not noted in ROS Statement are negative. Past Medical History Additional Past Medical History / Comment(s): ovarian cysts, anxiety, migraine headches. patient states she isn't sure if she has dysautonomia. History of Any Multi-Drug Resistant Organisms: None Reported Past Surgical History: Adenoidectomy, Cholecystectomy, Tonsillectomy, Tubal Ligation Additional Past Surgical History / Comment(s): lt fallopian tube removal, patient also states she's had a partial hysterectomy. Past Anesthesia/Blood Transfusion Reactions: No Reported Reaction Past Psychological History: Anxiety, Depression Smoking Status: Current every day smoker Past Alcohol Use History: None Reported Past Drug Use History: None Reported - Past Family History Mother Family Medical History: No Reported History General Exam Limitations: no limitations General appearance: alert, in no apparent distress Head exam: Present: atraumatic, normocephalic, normal inspection Eye exam: Present: normal appearance, PERRL, EOMI. Absent: scleral icterus, conjunctival injection, periorbital swelling ENT exam: Present: normal exam, mucous membranes moist Neck exam: Present: normal inspection. Absent: tenderness, meningismus, lymphadenopathy Respiratory exam: Present: normal lung sounds bilaterally. Absent: respiratory distress, wheezes, rales, rhonchi, stridor Cardiovascular Exam: Present: regular rate, normal rhythm, normal heart sounds. Absent: systolic murmur, diastolic murmur, rubs, gallop, clicks GI/Abdominal exam: Present: soft, normal bowel sounds. Absent: distended, tenderness, guarding, rebound, rigid Extremities exam: Present: normal inspection, full ROM, normal capillary refill. Absent: tenderness, pedal edema, joint swelling, calf tenderness Back exam: Present: normal inspection Neurological exam: Present: alert, oriented X3, CN II-XII intact Psychiatric exam: Present: normal affect, normal mood Skin exam: Present: warm, dry, intact, normal color. Absent: rash Course Vital Signs 09/21/24 09/21/24 17:49 20:07 Temperature 98.8 F Pulse Rate 88 78 Respiratory 18 18 Rate Blood Pressure 116/73 111/69 O2 Sat by Pulse 98 98 Oximetry - Reevaluation(s) Reevaluation #1: 01/04/25 18:15 Medical records reviewed Reevaluation #2: 09/21/24 19:08 No recurrent syncopal event patient has no complaints headache improved Reevaluation #3: 09/21/24 19:08 Patient informed of results questions answered Patient continues to ask for further testing coronavirus testing swabs and different testing as she is unsure of cause of symptoms Reevaluation #4: Was pt. sent in by a medical professional or institution (, SUSAN, [employer] WAIST[employer]TER, urgent care, hospital, or correction...) When possible be specific @ -no Did you speak to anyone other than the patient for history (EMS, parent, family, police, friend...)? What history was obtained from this source @ -no Did you review nursing and triage notes (agree or disagree)? Why? @ -agree Are old charts reviewed (outside hosp., previous admission, EMS record, old EKG, old radiological studies, urgent care reports/EKG's, correction records)? Report findings @ -yes Differential Diagnosis (chest pain, altered mental status, abdominal pain women, abdominal pain men, vaginal bleeding, weakness, fever, dyspnea, syncope, headache, dizziness, GI bleed, back pain, seizure, CVA, palpatations, mental health, musculoskeletal)? @ -prior EKG interpreted by me (3pts min.). @ -yes X-rays interpreted by me (1pt min.). @ -no CT interpreted by me (1pt min.). @ -no U/S interpreted by me (1pt. min.). @ -no What testing was considered but not performed or refused? (CT, X-rays, U/S, labs)? Why? @ -none What meds were considered but not given or refused? Why? @ -none Did you discuss the management of the patient with other professionals (professionals i.e. SUSAN Sandhu, [employer] WAIST[employer]AND [employer]TER, lab, RT, psych nurse, psychosocial rehabilitation counselor, brass wind instrument maker, teacher, budget officer, ed case manager)? Give summary @ -no Was smoking cessation discussed for >3mins.? @ -no Was critical care preformed (if so, how long)? @ -no Were there social determinants of health that impacted care today? How? (Homelessness, low income, unemployed, alcoholism, drug addiction, transportation, low edu. Level, literacy, decrease access to med. care, m[facility], rehab)? @ -none Was there de-escalation of care discussed even if they declined (Discuss DNR or withdrawal of care, Hospice)? DNR status @ -no What co-morbidities impacted this encounter? (DM, HTN, Smoking, COPD, CAD, Cancer, CVA, ARF, Chemo, Hep., AIDS, mental health diagnosis, sleep apnea, morbid obesity)? @ -none Was patient admitted / discharged? Hospital course, mention meds given and route, prescriptions, significant lab abnormalities, going to OR and other pertinent info. @ - 44 female with multiple nonspecific complaints. No acute cause of patient's symptoms here in the ER patient can be discharged home Discharge Undiagnosed new problem with uncertain prognosis? @ -no Drug Therapy requiring intensive monitoring for toxicity (Heparin, Nitro, Insulin, Cardizem)? @ -no Were any procedures done? @ -no Diagnosis/symptom? @ -Syncope with intractable headache Acute, or Chronic, or Acute on Chronic? @ -Acute Uncomplicated (without systemic symptoms) or Complicated (systemic symptoms)? @ -Complicated Side effects of treatment? @ -no Exacerbation, Progression, or Severe Exacerbation? @ -exacerbation Poses a threat to life or bodily function? How? (Chest pain, USA, LA, pneumonia, PE, COPD, DKA, ARF, appy, cholecystitis, CVA, Diverticulitis, Homicidal, Suicidal, threat to staff... and all critical care pts) @ -no Reevaluation #5: Differential Syncope: Valvular disease, hypertrophic cardiomyopathy, pulmonary embolism, tamponade, tachycardia, bradycardia, LA, hypovolemia, hemorrhage, dissection, anemia, intracranial hemorrhage, seizure, hypoglycemia, carbon monoxide poisoning, this is not meant to be an all-inclusive list. Differential Headache: Migraine, tension, cluster, carbon monoxide, central venous thrombosis, pension karma temporal arteritis, acute closure glaucoma, intercranial hemorrhage, mastoiditis, sinusitis, head injury, this is not meant to be an all-inclusive list. EKG Findings - EKG Comments: EKG Findings:: EKG sinus 64 [place] 140 QRS 93 QTc 385 - EKG Results: EKG: interpreted by BEV Medical Decision Making - Medical Decision Making 44 female with multiple nonspecific complaints. No acute cause of patient's symptoms here in the ER patient can be discharged home - Lab Data Result diagrams: 09/21/24 19:09 09/21/24 19:09 Lab Results 09/21/24 09/21/24 09/21/24 Range/Units 19:09 19: 19:09 WBC 10.3 (3.8-10.6) k/uL RBC 4.16 (3.80-5.40) m/uL Hgb 12.9 (11.4-16.0) gm/dL Hct 38.6 (34.0-46.0) % MCV 92.7 (80.0-100.0) fL MCH 31.0 (25.0-35.0) pg MCHC 33.4 (31.0-37.0) g/dL RDW 12.2 (11.5-15.5) % Plt Count 247 (150-450) k/uL MPV 7.4 Neutrophils % 63 % Lymphocytes % 29 % Monocytes % 5 % Eosinophils % 1 % Basophils % 1 % Neutrophils # 6.5 (1.3-7.7) k/uL Lymphocytes # 3.0 (1.0-4.8) k/uL Monocytes # 0.5 (0-1.0) k/uL Eosinophils # 0.1 (0-0.7) k/uL Basophils # 0.1 (0-0.2) k/uL PT 10.3 (10.0-12.5) sec INR 0.9 (<1.2) APTT 25.2 (22.0-30.0) sec Sodium 136 L (137-145) mmol/L Potassium 4.2 (3.5-5.1) mmol/L Chloride 104 (98-107) mmol/L Carbon Dioxide 23 (22-30) mmol/L Anion Gap 9 mmol/L BUN 16 (7-17) mg/dL Creatinine 0.72 (0.52-1.04) mg/dL Est GFR (CKD-EPI)AfAm >90 (>60 ml/min/1.73 sqM) Est GFR (CKD-EPI)NonAf >90 (>60 ml/min/1.73 sqM) Glucose 79 (74-99) mg/dL Calcium 9.7 (8.4-10.2) mg/dL Phosphorus 4.3 (2.5-4.5) mg/dL Magnesium 1.7 (1.6-2.3) mg/dL Total Bilirubin 0.3 (0.2-1.3) mg/dL AST 16 (14-36) U/L ALT 10 (4-34) U/L Alkaline Phosphatase 35 L (38-126) U/L Troponin I (0.000-0.034) ng/mL Total Protein 7.0 (6.3-8.2) g/dL Albumin 4.7 (3.5-5.0) g/dL 09/21/24 Range/Units 19:09 WBC (3.8-10.6) k/uL RBC (3.80-5.40) m/uL Hgb (11.4-16.0) gm/dL Hct (34.0-46.0) % MCV (80.0-100.0) fL MCH (25.0-35.0) pg MCHC (31.0-37.0) g/dL RDW (11.5-15.5) % Plt Count (150-450) k/uL MPV Neutrophils % % Lymphocytes % % Monocytes % % Eosinophils % % Basophils % % Neutrophils # (1.3-7.7) k/uL Lymphocytes # (1.0-4.8) k/uL Monocytes # (0-1.0) k/uL Eosinophils # (0-0.7) k/uL Basophils # (0-0.2) k/uL PT (10.0-12.5) sec INR (<1.2) APTT (22.0-30.0) sec Sodium (137-145) mmol/L Potassium (3.5-5.1) mmol/L Chloride (98-107) mmol/L Carbon Dioxide (22-30) mmol/L Anion Gap mmol/L BUN (7-17) mg/dL Creatinine (0.52-1.04) mg/dL Est GFR (CKD-EPI)AfAm (>60 ml/min/1.73 sqM) Est GFR (CKD-EPI)NonAf (>60 ml/min/1.73 sqM) Glucose (74-99) mg/dL Calcium (8.4-10.2) mg/dL Phosphorus (2.5-4.5) mg/dL Magnesium (1.6-2.3) mg/dL Total Bilirubin (0.2-1.3) mg/dL AST (14-36) U/L ALT (4-34) U/L Alkaline Phosphatase (38-126) U/L Troponin I <0.012 (0.000-0.034) ng/mL Total Protein (6.3-8.2) g/dL Albumin (3.5-5.0) g/dL - EKG Data -: EKG Interpreted by Me Disposition Clinical Impression: Intractable headache, Near syncope Disposition: HOME SELF-CARE Condition: Good Instructions (If sedation given, give patient instructions): Migraine Headache (ED), Near Syncope (ED) Is patient prescribed a controlled substance at d/c from ED?: No Referrals: Dima Winkler MD [Primary Care Provider] - 1-2 days Time of Disposition: 19:30
[2024-09-21] MEDS: SODIUM CHLORIDE 0.9% 1,000 ML IV STA (19:05)
[2024-09-21] MEDS: KETOROLAC 15 MG/ML 1 ML VIAL IVP STA (19:05)
[2024-09-21] MEDS: diphenhydrAMINE 50 MG/ML 1 ML VIAL IVP STA (19:05)
[2024-09-21 19:25] LABS: Basophils # (A) 0.1 k/uL (0-0.2); Basophils % (A) 1 %; Eosinophils # (A) 0.1 k/uL (0-0.7); Eosinophils % (A) 1 %; HCT 38.6 % (34.0-46.0); HGB 12.9 gm/dL (11.4-16.0); Lymphocytes % (A) 29 %; MCHC 33.4 g/dL (31.0-37.0); MCV 92.7 fL (80.0-100.0); Mean Platelet Volume 7.4; Monocytes # (A) 0.5 k/uL (0-1.0); Monocytes % (A) 5 %; Neutrophils # (A) 6.5 k/uL (1.3-7.7); Neutrophils % (A) 63 %; Platelet Count 247 k/uL (150-450); RBC 4.16 m/uL (3.80-5.40); RDW 12.2 % (11.5-15.5); WBC 10.3 k/uL (3.8-10.6)
[2024-09-21 19:34] LABS: INR 0.9 (<1.2); Partial Thromboplastin Time 25.2 sec (22.0-30.0); Prothrombin Time 10.3 sec (10.0-12.5)
[2024-09-21 19:39] LABS: ALT 10 U/L (4-34); AST 16 U/L (14-36); African American GFR (CKD) >90 (>60 ml/min/1.73 sqM); Albumin 4.7 g/dL (3.5-5.0); Alkaline Phosphatase 35 U/L (38-126); Anion Gap 9 mmol/L; Blood Urea Nitrogen 16 mg/dL (7-17); Calcium 9.7 mg/dL (8.4-10.2); Carbon Dioxide 23 mmol/L (22-30); Chloride 104 mmol/L (98-107); Glucose 79 mg/dL (74-99); Magnesium 1.7 mg/dL (1.6-2.3); Non-African American GFR(CKD) >90 (>60 ml/min/1.73 sqM); Phosphorus 4.3 mg/dL (2.5-4.5); Potassium 4.2 mmol/L (3.5-5.1); Sodium 136 mmol/L (137-145); Total Bilirubin 0.3 mg/dL (0.2-1.3)
[2024-09-21 20:14] VITALS: BP 111/69; PULSE 78
== END 2024-09-21 20:14 | disposition home or self-care (01) ==
LOC: EC 17:20
DX: R55 Syncope and collapse (principal); G43.909 Migraine, unspecified, not intractable, without status migrainosus; F17.200 Nicotine dependence, unspecified, uncomplicated; Z88.5 Allergy status to narcotic agent; Z91.040 Latex allergy status; Z88.8 Allergy status to other drugs, medicaments and biological substances
CPT/HCPCS: 36415; 93005; 80053; 83735; 84100; 84484; 85025; 85610; 85730; 99284; 96374; 96375; 96361; J1200; J1885

== ENCOUNTER → 2024-10-16 | Outpatient (CLI) | payer OTHER ==
[2024-10-16 09:33] VITALS: BP 110/77; PULSE 79; RESP 19; TEMP 97.6
--- NOTE | 2024-10-16 15:44 | P.PAINPG ---
PQRS Measure Charge Sheet Comment: A 44 yr old female with a history of severe and chronic neck pain secondary to C5-C6 radiculopathy, spondylosis with facet arthropathy without myelopathy, T R Trigeminal Neuralgia presents today for medication refills. Pain level is provoked at 9-10 /10 in intensity, constant, predominantly axial, localized in the cervical spine, stabbing in character w occasional shooting towards the R jaw and R side of head. Pain is provoked by loud noises and lights. Pain is alleviated with physician guided stretches daily since Jul 2024, chiropractic treatments monthly since Jun 2024 which she is currently in, heat, medications, repositioning and rest. Cervical disability pain score at . Interventional pain procedures completed include Patient is currently on Fioricet, Neurontin, Zanax 1mg #30 from [facility] Patient denies any side effects of the medication(s), denies excessive drowsiness or sleepiness, denies suicidal ideation and reports that the current pain medication is helping to control the pain and improve activities of daily living. Patient denies any motor or sensory deficits. Patient denies any fever or night sweats, denies any change in the bowel movements or urination. Physical Examination: -Constitutional: Cooperative. Not in acute distress . - Neurologic: Cranial nerve II to XII intact. No focal neurological deficits. - Psychatric: Alert & oriented x 3. Matching mood & appropriate affect. Judgment and insight intact. - Musculoskeletal: Cervical spine: R Trigeminal Muscle bulk/ tone/ strength in the bilateral upper extremities normal Vertebral body tenderness to palpation over Spurling test positive Distraction test positive Facet loading test positive TTP Thoracic spine Muscle bulk / tone/ strength in the bilateral paraspinal muscles normal Vertebral body tender to palpation over Facet loading test positive TTP Lumbar spine: Motor bulk/ tone/ strength lower extremities , thigh and legs : 5/5 Deep tendon reflexes : Normal Knee Jerk. Normal Ankle Jerk . Vertebral body tenderness to palpation over Lumbar Facet Loading Test positive Straight Leg Raise: positive at 30 degrees right side/ left side Gaenslen's Test positive Sacral spine : Severe tenderness over the Sacroiliac joint: right side / left side Range of motion: Flexion of the lumbar spine <60 degrees Range of motion: Extension of the lumbar spine <20 degrees Gaenslen's Test positive R / L Apoorva test: positive right side / left side Thigh Thrust Test positive R / L Sacral Thrust Test positive R/ L Imaging: CT non contrast brain from 07/16/24 reviewed MRI non contrast brain from 08/06/24 reviewed MRI non contrast cervical from 06/16/21 reviewed Assessment and plan: Chronic neck pain secondary to C5-C6 radiculopathy, spondylosis with facet arthropathy without myelopathy, Trigeminal Neuralgia Recommendation of R Trigeminal Nerve Block #1. Risks, benefits of procedure discussed and pt verbalized understanding. Admits to anticoagulant use or medical history of diabetes. Protocol for discontinuation/ continuation of medications yonathan procedure discussed. All questions answered. Disinterested in refill for Fioricet #30, Neurontin 200mg #60 I have spent less than 30 minutes on patient care today. Dr Wesley was available by phone for the evaluation of this patient. The time was used to r eview the medical records including relevant urine studies and Prescription history (MAPs), review of the available imaging, evaluation and examination of the patient, coordination of care with the medical staff and if applicable referring physicians, as well as creation of the medical record PQRS Narrative: Smoking Status Current every day smoker Home Medications: Ambulatory Orders traZODone HCL [Desyrel] 100 mg PO HS 07/16/24 Venlafaxine HCl [Effexor XR] 37.5 mg PO DIRECTED 08/05/24 cloNIDine HCL [Catapres] 0.05 mg PO BID PRN 08/05/24 ALPRAZolam [Xanax] 1 mg PO Q8H PRN 3 Days #9 tab 08/06/24 Acetaminophen Tab [Tylenol] 650 mg PO Q6HR PRN tab 08/06/24 Ondansetron Odt [Zofran Odt] 4 mg PO Q12HR PRN #14 tab 08/06/24 Butalb/APAP/Caff 50-325-40Mg [Fioricet 50-325-40] 1 each PO Q4HR PRN #30 tab 10/16/24 Gabapentin [Neurontin] 200 mg PO BID 60 Days #120 cap 10/16/24 Controlled Substance Measures - Controlled Substance Measures Is patient prescribed a controlled substance at discharge?: No
== END ==
LOC: PNWHC3 08:30
PROVIDERS: ATTEND Specialist
DX: M47.22 Other spondylosis with radiculopathy, cervical region (principal); G50.0 Trigeminal neuralgia; F17.210 Nicotine dependence, cigarettes, uncomplicated; Z91.040 Latex allergy status; Z88.5 Allergy status to narcotic agent; Z88.8 Allergy status to other drugs, medicaments and biological substances
CPT/HCPCS: 99202

== ENCOUNTER → 2024-11-13 | Outpatient (CLI) | payer OTHER ==
[2024-11-13 09:24] VITALS: BP 120/84; PULSE 86; RESP 19; TEMP 97.6
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
== END ==
LOC: PNWHC3 08:46
PROVIDERS: ATTEND Specialist
DX: M47.22 Other spondylosis with radiculopathy, cervical region (principal); G50.0 Trigeminal neuralgia; G89.29 Other chronic pain; F17.210 Nicotine dependence, cigarettes, uncomplicated; Z91.040 Latex allergy status; Z88.5 Allergy status to narcotic agent; Z88.8 Allergy status to other drugs, medicaments and biological substances
CPT/HCPCS: 99212